=== PATIENT | female | born 1960 | race African-American/Black ===

== ENCOUNTER → 2017-12-08 | Outpatient (CLI) | payer BC ==
--- NOTE | 2017-12-08 19:59 | XR ---
EXAMINATION TYPE: XR foot complete RT DATE OF EXAM: 12/08/2017 COMPARISON: 11/22/2011 HISTORY: 57 year-old female right foot pain TECHNIQUE: 3 views FINDINGS: Mild to moderate degenerative spurring at the first MTP joint. Mild bunion formation. A Velásquez's toe is present. Tiny plantar calcaneal spur. No acute fracture, subluxation, or dislocation seen. IMPRESSION: [id number] degenerative change at the first MTP joint. Mild bunion formation and a Velásquez's toe . Tiny plantar calcaneal spur.
== END | disposition home or self-care (01) ==
LOC: RADXRMAIN 15:49
PROVIDERS: ATTEND Physician Assistant
DX: M77.31 Calcaneal spur, right foot (principal); M21.611 Bunion of right foot

== ENCOUNTER 2020-07-27 21:53 | Emergency (ER) | payer BC, OTHER ==
--- NOTE | 2020-07-27 22:47 | ED ---
Female Urogenital HPI - General Chief complaint: Urogenital Stated complaint: Poss GI infection Time Seen by Provider: 07/27/20 22:26 Source: patient Mode of arrival: ambulatory Limitations: no limitations - History of Present Illness Initial comments: This patient is 60-year-old woman who presents with complaint of perineal rash. The patient states that she thought that she was having vulvar yeast infection starting about 3 weeks ago. She noticed initially some burning. She states that she then noted onset of a rash and she tried using [id number] medication for yeast infection. This was approximately 10 days ago. The patient states that since that time she has noted further burning discomfort and swelling and is wondering if she had an ALLERGIC reaction to the medication or to laundry detergent. No fever or chills. No abdominal pain. No change in urination. The patient states she has possibly been a little constipated for 2 days. Review of systems is otherwise notable for itching rash to the fingers of the hands greater on the left side. MD Complaint: other Onset/Timin -: week(s) Location: labia, perineum Severity: mild Quality: burning Consistency: constant Improves with: none Worsens with: none Associated Symptoms: rash - Related Data Home Medications Medication Instructions Recorded Confirmed Irbesartan [Avapro] 300 mg PO DAILY 02/17/16 02/17/16 Metoprolol Succinate (ER) [Toprol 1 tab PO DAILY 02/17/16 02/17/16 XL] Previous Rx's Medication Instructions Recorded ALPRAZolam [Xanax] 0.25 mg PO BID PRN #10 tab 02/18/16 Fluconazole [Diflucan] 150 mg PO ONCE #2 tab 07/27/20 Allergies Allergy/AdvReac Type Severity Reaction Status Date / Time adhesive Allergy Rash/Hives Verified 07/27/20 22:10 sulfamethoxazole Allergy Rash/Hives Verified 07/27/20 22:10 [From Bactrim] trimethoprim [From Bactrim] Allergy Rash/Hives Verified 07/27/20 22:10 lisinopril AdvReac Cough Verified 07/27/20 22:10 Review of Systems ROS Statement: Those systems with pertinent positive or pertinent negative responses have been documented in the HPI. ROS Other: All systems not noted in ROS Statement are negative. Past Medical History Past Medical History: Chest Pain / Angina, GERD/Reflux, Hypertension History of Any Multi-Drug Resistant Organisms: None Reported Past Surgical History: Appendectomy, Hysterectomy Additional Past Surgical History / Comment(s): removal of cyst on right ovary, Past Anesthesia/Blood Transfusion Reactions: No Reported Reaction Past Psychological History: No Psychological Hx Reported Smoking Status: Current every day smoker Past Alcohol Use History: Daily Past Drug Use History: None Reported General Exam Limitations: no limitations General appearance: alert, in no apparent distress Head exam: Present: atraumatic, normocephalic Eye exam: Present: normal appearance. Absent: scleral icterus, conjunctival injection ENT exam: Present: normal oropharynx Neck exam: Present: normal inspection Respiratory exam: Present: normal lung sounds bilaterally. Absent: respiratory distress, wheezes, rales, rhonchi, stridor Cardiovascular Exam: Present: regular rate, normal rhythm, normal heart sounds. Absent: systolic murmur, diastolic murmur, rubs, gallop GI/Abdominal exam: Present: soft. Absent: distended, tenderness, guarding, rebound, rigid External exam: Present: erythema, swelling (Mild diffuse vulvar swelling and erythema. Small amount of thick whitish discharge.) Extremities exam: Present: normal inspection, normal capillary refill. Absent: pedal edema, calf tenderness Neurological exam: Present: alert Skin exam: Present: warm, dry, intact, erythema Course Vital Signs 07/27/20 07/27/20 22:04 23:57 Temperature 98.3 F 98.5 F Pulse Rate 103 H 80 Respiratory 18 16 Rate Blood Pressure 165/98 141/95 O2 Sat by Pulse 100 100 Oximetry Medical Decision Making - Lab Data Lab Results 07/27/20 07/27/20 Range/Units 22:53 23:16 POC Glucose (mg/dL) 116 H (75-99) mg/dL POC Glu Medicine Tech ID Tena Gómez Urine Color Yellow Urine Appearance Cloudy H (Clear) Urine pH 5.0 (5.0-8.0) Ur Specific [place] 1.012 (1.001-1.035) Urine Protein Negative (Negative) Urine Glucose (UA) Negative (Negative) Urine Ketones Negative (Negative) Urine Blood Negative (Negative) Urine Nitrite Negative (Negative) Urine Bilirubin Negative (Negative) Urine Urobilinogen 2.0 (<2.0) mg/dL Ur Leukocyte Esterase Negative (Negative) Urine RBC 4 (0-5) /hpf Urine WBC 2 (0-5) /hpf Ur Squamous Epith Cells 5 H (0-4) /hpf Calcium Oxalate Crystal Occasional H (None) /hpf Hyaline Casts 152 H (0-2) /lpf Urine Mucus Rare H (None) /hpf Disposition Clinical Impression: Sarah infection of genital region, Dyshidrotic hand dermatitis Disposition: HOME SELF-CARE Condition: Good Instructions (If sedation given, give patient instructions): Yeast Infection (ED), Dyshidrotic Eczema (ED) Additional Instructions: First line treatment for dyshidrosis would be to try using zinc oxide cream on the affected areas twice per day Prescriptions: Fluconazole [Diflucan] 150 mg PO ONCE #2 tab Is patient prescribed a controlled substance at d/c from ED?: No Referrals: Teddy Gore DO [Primary Care Provider] - 1-2 days Monico Senior MD [STAFF PHYSICIAN] - 1-2 days
[2020-07-27 22:56] LABS: Glucose,Whole Blood 116 mg/dL (75-99)
[2020-07-27] MEDS: FLUCONAZOLE 150 MG TAB PO STA (23:01)
[2020-07-27 23:34] LABS: Appearance,Urine Cloudy (Clear); Bilirubin,Urine Negative (Negative); Blood,Urine Negative (Negative); Calcium Oxalate Crystals,Urine Occasional /hpf; Color,Urine Yellow; Glucose,Urine (UA) Negative (Negative); Hyaline Casts,Urine 152 /lpf (0-2); Ketones,Urine Negative (Negative); Leukocyte Esterase,Urine Negative (Negative); Mucus,Urine Rare /hpf; Nitrite,Urine Negative (Negative); Protein,Urine Negative (Negative); RBC,Urine 4 /hpf (0-5); Specific Gravity,Urine 1.012 (1.001-1.035); Squamous Epithelial Cell,Urine 5 /hpf (0-4); WBC,Urine 2 /hpf (0-5)
[2020-07-27] MEDS: predniSONE 20 MG TAB PO STA (23:47)
[2020-07-27 23:59] VITALS: BP 141/95; PULSE 80; RESP 16; TEMP 98.5
== END 2020-07-27 23:58 | disposition home or self-care (01) ==
LOC: EC 21:53
DX: B37.9 Candidiasis, unspecified (principal); L30.1 Dyshidrosis [pompholyx]; F17.200 Nicotine dependence, unspecified, uncomplicated; I10 Essential (primary) hypertension; Z79.899 Other long term (current) drug therapy; Z91.048 Other nonmedicinal substance allergy status; Z88.2 Allergy status to sulfonamides; Z88.8 Allergy status to other drugs, medicaments and biological substances; Z88.1 Allergy status to other antibiotic agents
CPT/HCPCS: 36415; 81001; 99283; J7512

== ENCOUNTER 2020-10-13 20:19 | Emergency (ER) | payer BC, OTHER ==
[2020-10-13 20:28] LABS: Glucose,Whole Blood 128 mg/dL (75-99)
[2020-10-13 21:27] LABS: Basophils % (A) 1 %; Eosinophils # (A) 0.2 k/uL (0-0.7); Eosinophils % (A) 5 %; Lymphocytes # (A) 0.9 k/uL (1.0-4.8); Lymphocytes % (A) 24 %; MCH 33.5 pg (25.0-35.0); MCHC 34.2 g/dL (31.0-37.0); Mean Platelet Volume 7.5; Monocytes # (A) 0.2 k/uL (0-1.0); Monocytes % (A) 5 %; Neutrophils # (A) 2.3 k/uL (1.3-7.7); Neutrophils % (A) 63 %; Platelet Count 155 k/uL (150-450); RBC 4.18 m/uL (3.80-5.40); WBC 3.6 k/uL (3.8-10.6)
[2020-10-13 21:44] LABS: INR 1.2 (<1.2); Partial Thromboplastin Time 23.9 sec (22.0-30.0); Prothrombin Time 12.2 sec (9.0-12.0)
--- NOTE | 2020-10-13 21:53 | XR ---
EXAMINATION TYPE: XR chest 1V portable DATE OF EXAM: 10/13/2020 COMPARISON: 12/04/2015 HISTORY: Pneumonia TECHNIQUE: Single view FINDINGS: Heart and mediastinum are normal. Lungs are clear. Diaphragm is normal. Bony thorax appears normal. There are chest leads. IMPRESSION: Normal chest. No change.
[2020-10-13 22:03] LABS: D-Dimer 1.49 mg/L FEU (<0.60)
[2020-10-13 22:30] LABS: ALT 44 U/L (4-34); AST 115 U/L (14-36); African American GFR (CKD) 67 (>60 ml/min/1.73 sqM); Albumin 3.8 g/dL (3.5-5.0); Alkaline Phosphatase 138 U/L (38-126); Anion Gap 10 mmol/L; Blood Urea Nitrogen 9 mg/dL (7-17); C Reactive Protein <5.0 mg/L (<10.0); Carbon Dioxide 26 mmol/L (22-30); Chloride 98 mmol/L (98-107); Glucose 114 mg/dL (74-99); LDH 710 U/L (313-618); Magnesium 1.2 mg/dL (1.6-2.3); Non-African American GFR(CKD) 58 (>60 ml/min/1.73 sqM); Potassium 3.9 mmol/L (3.5-5.1); Sodium 134 mmol/L (137-145); Total Protein 7.8 g/dL (6.3-8.2)
[2020-10-13 22:36] VITALS: RESP 16; TEMP 98.8
[2020-10-13] MEDS ORDERED: hydrALAZINE HCL 20 MG/ML 1 ML VIAL IVP STA (23:03)
--- NOTE | 2020-10-13 23:09 | CT ---
EXAMINATION TYPE: CT chest angio for PE DATE OF EXAM: 10/13/2020 COMPARISON: None HISTORY: Elevated d-dimer, +covid. CT DLP: 345.4 mGycm Automated exposure control for dose reduction was used. CONTRAST: Performed with IV Contrast, patient injected with 80ml mL of Isovue 370. There are 3-D post processed images. Images obtained from the thoracic inlet to the diaphragm with IV contrast. The lungs are clear of infiltrate. There is no evidence of a pulmonary mass. There is no pleural effu vivi. There is no pericardial effusion. Heart size is normal. There is low attenuation throughout the liver consistent with fatty infiltration. Heart size is normal. There is no mediastinal adenopathy. There are no hilar masses. There is normal contrast opacification of the pulmonary arteries. There are no filling defects. Thora cic aorta is intact. There is no aneurysm or dissection. The ascending aorta measures 3.5 cm. There is mild spurring in the thoracic spine. There is no compression fracture. Sternum is intact. Th e ribs appear intact. IMPRESSION: No evidence of pulmonary embolism. No evidence of acute lung disease. Fatty infiltration of the liver.
--- NOTE | 2020-10-13 23:29 | ED ---
Weakness HPI - General Chief complaint: Weakness Stated complaint: Unable to eat Time Seen by Provider: 10/13/20 20:35 Source: patient Mode of arrival: ambulatory - History of Present Illness Initial comments: 60-year-old female hypertension presenting to the ER today for chief complaint of generalized weakness cough bodyaches nausea change in taste in appetite. Patient states that she has been battling with this on and off since August. She states it got better for few weeks and now is back she is concerned she has had Covid. She denies any persistent vomiting, diarrhea or rashes. Patient denies any neck stiffness. Patient denies any abdominal pain chest pain. Pat ient states she has slight shortness of breath she denies small cystlike swelling calf pain. She denies any upper extremity swelling. Patient denies orthopnea> pt states the dyspnea does worsening with exertion> pt states she did have friends that she has interacted wtih in the last month test positive for covid 19. Patient denies additional complaints. Patient appears nontoxic in no distress on arrival. BP elevated but patient did not take her medications today. - Related Data Home Medications Medication Instructions Recorded Confirmed Irbesartan [Avapro] 300 mg PO DAILY 02/17/16 02/17/16 Metoprolol Succinate (ER) [Toprol 1 tab PO DAILY 02/17/16 02/17/16 XL] Previous Rx's Medication Instructions Recorded ALPRAZolam [Xanax] 0.25 mg PO BID PRN #10 tab 02/18/16 Fluconazole [Diflucan] 150 mg PO ONCE #2 tab 07/27/20 Magnesium Oxide [Mag-Ox] 400 mg PO DAILY 2 Days #2 tablet 10/14/20 Allergies Allergy/AdvReac Type Severity Reaction Status Date / Time adhesive Allergy Rash/Hives Verified 10/13/20 20:28 sulfamethoxazole Allergy Rash/Hives Verified 10/13/20 20:28 [From Bactrim] trimethoprim [From Bactrim] Allergy Rash/Hives Verified 10/13/20 20:28 lisinopril AdvReac Cough Verified 10/13/20 20:28 Review of Systems ROS Statement: Those systems with pertinent positive or pertinent negative responses have been documented in the HPI. ROS Other: All systems not noted in ROS Statement are negative. Past Medical History Past Medical History: Chest Pain / Angina, GERD/Reflux, Hypertension History of Any Multi-Drug Resistant Organisms: None Reported Past Surgical History: Appendectomy, Hysterectomy Additional Past Surgical History / Comment(s): removal of cyst on right ovary, Past Anesthesia/Blood Transfusion Reactions: No Reported Reaction Past Psychological History: No Psychological Hx Reported Smoking Status: Current every day smoker Past Alcohol Use History: Daily Past Drug Use History: None Reported General Exam - General Exam Comments Initial Comments: General: The patient is awake and alert, in no distress Eye: +3 mm pupils are equal, round and reactive to light, extra-ocular movements are intact. No nystagmus. There is normal conjunctiva bilaterally. No signs of icterus. Ears, nose, mouth and throat: There are moist mucous membranes and no oral lesions. Neck: The neck is supple, there is no tenderness or JVD. Cardiovascular: There is a regular rate and rhythm. No murmur, rub or gallop is appreciated. Respiratory: Lungs are clear to auscultation, respirations are non-labored, breath sounds are equal. No wheezes, stridor, rales, or rhonchi. Cough. Retractions no abdominal breathing Gastrointestinal: Soft, non-distended, non-tender abdomen without masses or organomegaly noted. There is no rebound or guarding present. No CVA tenderness. Musculoskeletal: Normal ROM, no tenderness. Strength 5/5. Sensation intact. Radial and DP pulses equal bilaterally 2+. Neurological: A&O x 3. CN II-XII intact grossly, There are no obvious motor or sensory deficits. Coordination appears grossly intact. Speech is normal. Skin: Skin is warm and dry and no rashes or lesions are noted. No calf pain, no LE edema. Psychiatric: Cooperative, appropriate mood & affect, normal judgment. Course Vital Signs 10/13/20 10/13/20 10/13/20 20:21 20:46 22:35 Temperature 97.9 F 98.8 F Pulse Rate 86 76 Respiratory 19 18 16 Rate Blood Pressure 138/103 137/104 O2 Sat by Pulse 98 98 Oximetry 10/13/20 10/14/20 23:00 00:25 Temperature Pulse Rate 72 82 Respiratory 16 16 Rate Blood Pressure 150/99 140/89 O2 Sat by Pulse 100 Oximetry Medical Decision Making - Medical Decision Making Very well-appearing 60-year-old female presenting today for multiple complaints. They're concerning for Covid 19. Pt covid +. CXR clear. Troponin (-). EKG no specific findings. No CP. Patient dimer elevated CTA (-) for PE. Patient has no extremity findings. Patient hydrated. and will be discharged with symptomatic treatment instruction, return parameters and monitoring precautions. Discussed purchasing a pulse oximete, he son Eric who is bedside states he has one available for her use. Patient discharged appearing well in no distress, self ambulatory. Dr. Osborn agreeable to care plan. - Lab Data Result diagrams: 10/13/20 21:10 10/13/20 21:10 Lab Results 10/13/20 10/13/20 10/13/20 Range/Units 20:26 21:10 21:10 WBC 3.6 L (3.8-10.6) k/uL RBC 4.18 (3.80-5.40) m/uL Hgb 14.0 (11.4-16.0) gm/dL Hct 41.0 (34.0-46.0) % MCV 98.0 (80.0-100.0) fL MCH 33.5 (25.0-35.0) pg MCHC 34.2 (31.0-37.0) g/dL RDW 13.0 (11.5-15.5) % Plt Count 155 (150-450) k/uL MPV 7.5 Neutrophils % 63 % Lymphocytes % 24 % Monocytes % 5 % Eosinophils % 5 % Basophils % 1 % Neutrophils # 2.3 (1.3-7.7) k/uL Lymphocytes # 0.9 L (1.0-4.8) k/uL Monocytes # 0.2 (0-1.0) k/uL Eosinophils # 0.2 (0-0.7) k/uL Basophils # 0.0 (0-0.2) k/uL PT 12.2 H (9.0-12.0) sec INR 1.2 H (<1.2) APTT 23.9 (22.0-30.0) sec D-Dimer 1.49 H (<0.60) mg/L FEU Sodium (137-145) mmol/L Potassium (3.5-5.1) mmol/L Chloride (98-107) mmol/L Carbon Dioxide (22-30) mmol/L Anion Gap mmol/L BUN (7-17) mg/dL Creatinine (0.52-1.04) mg/dL Est GFR (CKD-EPI)AfAm (>60 ml/min/1.73 sqM) Est GFR (CKD-EPI)NonAf (>60 ml/min/1.73 sqM) Glucose (74-99) mg/dL POC Glucose (mg/dL) 128 H (75-99) mg/dL POC Glu Key Filer ID Byron Cartagena Lactic Ac Sepsis Rflx Plasma Lactic Acid [place] (0.7-2.0) mmol/L Calcium (8.4-10.2) mg/dL Magnesium (1.6-2.3) mg/dL Total Bilirubin (0.2-1.3) mg/dL AST (14-36) U/L ALT (4-34) U/L Alkaline Phosphatase (38-126) U/L Lactate Dehydrogenase (313-618) U/L Troponin I (0.000-0.034) ng/mL C-Reactive Protein (<10.0) mg/L Total Protein (6.3-8.2) g/dL Albumin (3.5-5.0) g/dL Coronavirus (PCR) (Not Detectd) 10/13/20 10/13/20 10/13/20 Range/Units 21:10 21:10 21:10 WBC (3.8-10.6) k/uL RBC (3.80-5.40) m/uL Hgb (11.4-16.0) gm/dL Hct (34.0-46.0) % MCV (80.0-100.0) fL MCH (25.0-35.0) pg MCHC (31.0-37.0) g/dL RDW (11.5-15.5) % Plt Count (150-450) k/uL MPV Neutrophils % % Lymphocytes % % Monocytes % % Eosinophils % % Basophils % % Neutrophils # (1.3-7.7) k/uL Lymphocytes # (1.0-4.8) k/uL Monocytes # (0-1.0) k/uL Eosinophils # (0-0.7) k/uL Basophils # (0-0.2) k/uL PT (9.0-12.0) sec INR (<1.2) APTT (22.0-30.0) sec D-Dimer (<0.60) mg/L FEU Sodium 134 L (137-145) mmol/L Potassium 3.9 (3.5-5.1) mmol/L Chloride 98 (98-107) mmol/L Carbon Dioxide 26 (22-30) mmol/L Anion Gap 10 mmol/L BUN 9 (7-17) mg/dL Creatinine 1.04 (0.52-1.04) mg/dL Est GFR (CKD-EPI)AfAm 67 (>60 ml/min/1.73 sqM) Est GFR (CKD-EPI)NonAf 58 (>60 ml/min/1.73 sqM) Glucose 114 H (74-99) mg/dL POC Glucose (mg/dL) (75-99) mg/dL POC Glu Key Filer ID Lactic Ac Sepsis Rflx Plasma Lactic Acid [place] 2.1 H* (0.7-2.0) mmol/L Calcium 9.0 (8.4-10.2) mg/dL Magnesium 1.2 L (1.6-2.3) mg/dL Total Bilirubin 1.0 (0.2-1.3) mg/dL AST 115 H (14-36) U/L ALT 44 H (4-34) U/L Alkaline Phosphatase 138 H (38-126) U/L Lactate Dehydrogenase 710 H (313-618) U/L Troponin I <0.012 (0.000-0.034) ng/mL C-Reactive Protein <5.0 (<10.0) mg/L Total Protein 7.8 (6.3-8.2) g/dL Albumin 3.8 (3.5-5.0) g/dL Coronavirus (PCR) (Not Detectd) 10/13/20 10/13/20 Range/Units 21:10 22:06 WBC (3.8-10.6) k/uL RBC (3.80-5.40) m/uL Hgb (11.4-16.0) gm/dL Hct (34.0-46.0) % MCV (80.0-100.0) fL MCH (25.0-35.0) pg MCHC (31.0-37.0) g/dL RDW (11.5-15.5) % Plt Count (150-450) k/uL MPV Neutrophils % % Lymphocytes % % Monocytes % % Eosinophils % % Basophils % % Neutrophils # (1.3-7.7) k/uL Lymphocytes # (1.0-4.8) k/uL Monocytes # (0-1.0) k/uL Eosinophils # (0-0.7) k/uL Basophils # (0-0.2) k/uL PT (9.0-12.0) sec INR (<1.2) APTT (22.0-30.0) sec D-Dimer (<0.60) mg/L FEU Sodium (137-145) mmol/L Potassium (3.5-5.1) mmol/L Chloride (98-107) mmol/L Carbon Dioxide (22-30) mmol/L Anion Gap mmol/L BUN (7-17) mg/dL Creatinine (0.52-1.04) mg/dL Est GFR (CKD-EPI)AfAm (>60 ml/min/1.73 sqM) Est GFR (CKD-EPI)NonAf (>60 ml/min/1.73 sqM) Glucose (74-99) mg/dL POC Glucose (mg/dL) (75-99) mg/dL POC Glu Key Filer ID Lactic Ac Sepsis Rflx Y Plasma Lactic Acid [place] (0.7-2.0) mmol/L Calcium (8.4-10.2) mg/dL Magnesium (1.6-2.3) mg/dL Total Bilirubin (0.2-1.3) mg/dL AST (14-36) U/L ALT (4-34) U/L Alkaline Phosphatase (38-126) U/L Lactate Dehydrogenase (313-618) U/L Troponin I (0.000-0.034) ng/mL C-Reactive Protein (<10.0) mg/L Total Protein (6.3-8.2) g/dL Albumin (3.5-5.0) g/dL Coronavirus (PCR) Detected A (Not Detectd) Disposition Clinical Impression: Lack of appetite, Weakness, Cough, Altered taste, Dyspnea, Hypomagnesemia Disposition: HOME SELF-CARE Condition: Good Instructions (If sedation given, give patient instructions): Coronavirus Disease 2019 (COVID-19) Additional Instructions: Please use medication as discussed. Please follow-up with family doctor in the next 2 days. Recommend home monitoring of oxygen levels, if oxygen drops below 92% or shortness of breath increased please return to the ER. Please return to emergency room if the symptoms increase or worsen or for any other concerns. Is patient prescribed a controlled substance at d/c from ED?: No Referrals: Teddy Gore DO [Primary Care Provider] - 1-2 days Time of Disposition: 23:28
[2020-10-13] MEDS ORDERED: SODIUM CHLORIDE 0.9% 500 ML 500 ML IV ONE (23:36)
[2020-10-13] MEDS ORDERED: SODIUM CHLORIDE 0.9% 1,000 ML IV SCH (23:45)
[2020-10-14 00:26] VITALS: BP 140/89; PULSE 82
[2020-10-14 09:54] LABS: Ferritin 949.6 ng/mL (10.0-291.0)
== END 2020-10-14 00:26 | disposition home or self-care (01) ==
LOC: EC 20:19
DX: E83.42 Hypomagnesemia (principal); K21.9 Gastro-esophageal reflux disease without esophagitis; I10 Essential (primary) hypertension; F17.200 Nicotine dependence, unspecified, uncomplicated; Z90.49 Acquired absence of other specified parts of digestive tract; Z90.710 Acquired absence of both cervix and uterus; Z90.721 Acquired absence of ovaries, unilateral; Z79.899 Other long term (current) drug therapy
CPT/HCPCS: 99285; 96374; 36415; 93005; 85379; 80053; 82728; 83605; 83615; 83735; 84484; 85025; 85610; 85730; 86140; 87040; 84145; 87635; 71045; 71275; J0360; Q9967

== ENCOUNTER 2021-08-11 03:48 | Emergency (ER) | payer OTHER ==
[2021-08-11] MEDS ORDERED: ONDANSETRON ODT 4 MG TAB PO STA (03:59)
[2021-08-11] MEDS ORDERED: SODIUM CHLORIDE 0.9% 1,000 ML IV STA (05:59)
[2021-08-11] MEDS ORDERED: ONDANSETRON 4 MG/2 ML VIAL IVP STA (05:59)
[2021-08-11 07:58] LABS: Basophils % (A) 0 %; Eosinophils # (A) 0.1 k/uL (0-0.7); Eosinophils % (A) 2 %; HCT 26.2 % (34.0-46.0); HGB 8.6 gm/dL (11.4-16.0); Lymphocytes # (A) 0.5 k/uL (1.0-4.8); Lymphocytes % (A) 18 %; MCH 34.6 pg (25.0-35.0); MCHC 32.8 g/dL (31.0-37.0); MCV 105.6 fL (80.0-100.0); Macrocytosis Moderate; Mean Platelet Volume 7.8; Monocytes # (A) 0.2 k/uL (0-1.0); Monocytes % (A) 6 %; Neutrophils # (A) 2.1 k/uL (1.3-7.7); Neutrophils % (A) 71 %; Platelet Count 119 k/uL (150-450); RBC 2.48 m/uL (3.80-5.40); RDW 14.4 % (11.5-15.5)
[2021-08-11 08:09] LABS: ALT 32 U/L (4-34); AST 142 U/L (14-36); African American GFR (CKD) >90 (>60 ml/min/1.73 sqM); Albumin 3.1 g/dL (3.5-5.0); Alkaline Phosphatase 102 U/L (38-126); Amylase 56 U/L (30-110); Anion Gap 9 mmol/L; Blood Urea Nitrogen 5 mg/dL (7-17); Calcium 7.5 mg/dL (8.4-10.2); Carbon Dioxide 20 mmol/L (22-30); Chloride 111 mmol/L (98-107); Glucose 97 mg/dL (74-99); Lipase 189 U/L (23-300); Non-African American GFR(CKD) 84 (>60 ml/min/1.73 sqM); Sodium 140 mmol/L (137-145); Total Bilirubin 0.9 mg/dL (0.2-1.3); Total Protein 6.4 g/dL (6.3-8.2)
[2021-08-11 09:32] LABS: Appearance,Urine Clear (Clear); Bilirubin,Urine Negative (Negative); Blood,Urine Negative (Negative); Color,Urine Yellow; Glucose,Urine (UA) Negative (Negative); Ketones,Urine Negative (Negative); Leukocyte Esterase,Urine Negative (Negative); Nitrite,Urine Negative (Negative); PH, Urine 6.5 (5.0-8.0); Protein,Urine Negative (Negative); Specific Gravity,Urine 1.007 (1.001-1.035); Urobilinogen,Urine <2.0 mg/dL (<2.0)
--- NOTE | 2021-08-11 09:38 | ED ---
Nausea/Vomiting/Diarrhea HPI - General Chief complaint: Nausea/Vomiting/Diarrhea Stated complaint: Vomiting Time Seen by Provider: 08/11/21 03:58 Source: patient Mode of arrival: ambulatory Limitations: no limitations - Related Data Home Medications Medication Instructions Recorded Confirmed Irbesartan [Avapro] 300 mg PO DAILY 02/17/16 02/17/16 Metoprolol Succinate (ER) [Toprol 1 tab PO DAILY 02/17/16 02/17/16 XL] Previous Rx's Medication Instructions Recorded ALPRAZolam [Xanax] 0.25 mg PO BID PRN #10 tab 02/18/16 Fluconazole [Diflucan] 150 mg PO ONCE #2 tab 07/27/20 Magnesium Oxide [Mag-Ox] 400 mg PO DAILY 2 Days #2 tablet 10/14/20 Ondansetron Odt [Zofran ODT] 4 mg PO Q8HR PRN #10 tab 08/11/21 Allergies Allergy/AdvReac Type Severity Reaction Status Date / Time adhesive Allergy Rash/Hives Verified 08/11/21 03:54 sulfamethoxazole Allergy Rash/Hives Verified 08/11/21 03:54 [From Bactrim] trimethoprim [From Bactrim] Allergy Rash/Hives Verified 08/11/21 03:54 lisinopril AdvReac Cough Verified 08/11/21 03:54 Review of Systems ROS Statement: Those systems with pertinent positive or pertinent negative responses have been documented in the HPI. ROS Other: All systems not noted in ROS Statement are negative. Past Medical History Past Medical History: Chest Pain / Angina, GERD/Reflux, Hypertension, Thyroid Disorder History of Any Multi-Drug Resistant Organisms: None Reported Past Surgical History: Appendectomy, Hysterectomy Additional Past Surgical History / Comment(s): removal of cyst on right ovary, Past Anesthesia/Blood Transfusion Reactions: No Reported Reaction Past Psychological History: No Psychological Hx Reported Smoking Status: Current every day smoker Past Alcohol Use History: Daily Past Drug Use History: None Reported General Exam Limitations: no limitations Course Vital Signs 08/11/21 03:49 Temperature 98.3 F Pulse Rate 110 H Respiratory 22 Rate Blood Pressure 168/104 O2 Sat by Pulse 100 Oximetry Medical Decision Making - Lab Data Result diagrams: 08/11/21 07:48 08/11/21 07:48 Lab Results 01/16/22 01/16/22 01/16/22 Range/Units 04:19 07:48 07:48 WBC 3.0 L (3.8-10.6) k/uL RBC 2.48 L (3.80-5.40) m/uL Hgb 8.6 L (11.4-16.0) gm/dL Hct 26.2 L (34.0-46.0) % MCV 105.6 H (80.0-100.0) fL MCH 34.6 (25.0-35.0) pg MCHC 32.8 (31.0-37.0) g/dL RDW 14.4 (11.5-15.5) % Plt Count 119 L (150-450) k/uL MPV 7.8 Neutrophils % 71 % Lymphocytes % 18 % Monocytes % 6 % Eosinophils % 2 % Basophils % 0 % Neutrophils # 2.1 (1.3-7.7) k/uL Lymphocytes # 0.5 L (1.0-4.8) k/uL Monocytes # 0.2 (0-1.0) k/uL Eosinophils # 0.1 (0-0.7) k/uL Basophils # 0.0 (0-0.2) k/uL Macrocytosis Moderate Sodium 140 (137-145) mmol/L Potassium 4.0 (3.5-5.1) mmol/L Chloride 111 H (98-107) mmol/L Carbon Dioxide 20 L (22-30) mmol/L Anion Gap 9 mmol/L BUN 5 L (7-17) mg/dL Creatinine 0.76 (0.52-1.04) mg/dL Est GFR (CKD-EPI)AfAm >90 (>60 ml/min/1.73 sqM) Est GFR (CKD-EPI)NonAf 84 (>60 ml/min/1.73 sqM) Glucose 97 (74-99) mg/dL Calcium 7.5 L (8.4-10.2) mg/dL Total Bilirubin 0.9 (0.2-1.3) mg/dL AST 142 H (14-36) U/L ALT 32 (4-34) U/L Alkaline Phosphatase 102 (38-126) U/L Total Protein 6.4 (6.3-8.2) g/dL Albumin 3.1 L (3.5-5.0) g/dL Amylase 56 (30-110) U/L Lipase 189 (23-300) U/L Urine Color Urine Appearance (Clear) Urine pH (5.0-8.0) Ur Specific [place] (1.001-1.035) Urine Protein (Negative) Urine Glucose (UA) (Negative) Urine Ketones (Negative) Urine Blood (Negative) Urine Nitrite (Negative) Urine Bilirubin (Negative) Urine Urobilinogen (<2.0) mg/dL Ur Leukocyte Esterase (Negative) Coronavirus (PCR) Not Detected (Not Detectd) 08/11/21 Range/Units 09:05 WBC (3.8-10.6) k/uL RBC (3.80-5.40) m/uL Hgb (11.4-16.0) gm/dL Hct (34.0-46.0) % MCV (80.0-100.0) fL MCH (25.0-35.0) pg MCHC (31.0-37.0) g/dL RDW (11.5-15.5) % Plt Count (150-450) k/uL MPV Neutrophils % % Lymphocytes % % Monocytes % % Eosinophils % % Basophils % % Neutrophils # (1.3-7.7) k/uL Lymphocytes # (1.0-4.8) k/uL Monocytes # (0-1.0) k/uL Eosinophils # (0-0.7) k/uL Basophils # (0-0.2) k/uL Macrocytosis Sodium (137-145) mmol/L Potassium (3.5-5.1) mmol/L Chloride (98-107) mmol/L Carbon Dioxide (22-30) mmol/L Anion Gap mmol/L BUN (7-17) mg/dL Creatinine (0.52-1.04) mg/dL Est GFR (CKD-EPI)AfAm (>60 ml/min/1.73 sqM) Est GFR (CKD-EPI)NonAf (>60 ml/min/1.73 sqM) Glucose (74-99) mg/dL Calcium (8.4-10.2) mg/dL Total Bilirubin (0.2-1.3) mg/dL AST (14-36) U/L ALT (4-34) U/L Alkaline Phosphatase (38-126) U/L Total Protein (6.3-8.2) g/dL Albumin (3.5-5.0) g/dL Amylase (30-110) U/L Lipase (23-300) U/L Urine Color Yellow Urine Appearance Clear (Clear) Urine pH 6.5 (5.0-8.0) Ur Specific [place] 1.007 (1.001-1.035) Urine Protein Negative (Negative) Urine Glucose (UA) Negative (Negative) Urine Ketones Negative (Negative) Urine Blood Negative (Negative) Urine Nitrite Negative (Negative) Urine Bilirubin Negative (Negative) Urine Urobilinogen <2.0 (<2.0) mg/dL Ur Leukocyte Esterase Negative (Negative) Coronavirus (PCR) (Not Detectd) Disposition Clinical Impression: Vomiting Disposition: HOME SELF-CARE Condition: Good Instructions (If sedation given, give patient instructions): Acute Nausea and Vomiting (ED) Prescriptions: Ondansetron Odt [Zofran ODT] 4 mg PO Q8HR PRN #10 tab PRN Reason: Nausea Is patient prescribed a controlled substance at d/c from ED?: No Referrals: eTddy Gore DO [Primary Care Provider] - 1-2 days
[2021-08-11 09:58] VITALS: BP 144/99; PULSE 98; RESP 18; TEMP 98.8
== END 2021-08-11 09:57 | disposition home or self-care (01) ==
LOC: EC 03:48
DX: R11.10 Vomiting, unspecified (principal); I10 Essential (primary) hypertension; K21.9 Gastro-esophageal reflux disease without esophagitis; F17.200 Nicotine dependence, unspecified, uncomplicated; Z79.899 Other long term (current) drug therapy; Z20.822 Contact with and (suspected) exposure to COVID-19
CPT/HCPCS: 36415; 80053; 82150; 83690; 85025; 81003; 87635; 99283; 96374; 96361; J2405

== ENCOUNTER 2023-07-11 20:33 | Observation (INO) | payer MEDICARE ==
[2023-07-11] MEDS ORDERED: SODIUM CHLORIDE 0.9% 1,000 ML IV ONE (21:04)
[2023-07-11] MEDS ORDERED: KETOROLAC 15 MG/ML 1 ML VIAL IVP STA (21:05)
[2023-07-11] MEDS ORDERED: MAG HYDROX/AL HYDROX/SIMETH 30 ML, HYOSCYAMINE ELIXIR 10 ML, LIDOCAINE 2% GLYDO JELLY 1... PO STA ×3 (21:05)
[2023-07-11] MEDS ORDERED: MORPHINE SULFATE 4 MG/ML SYRINGE IVP STA (21:34)
[2023-07-11 21:39] LABS: Basophils % (A) 1 %; Eosinophils # (A) 0.1 k/uL (0-0.7); Eosinophils % (A) 3 %; HCT 36.1 % (34.0-46.0); HGB 12.6 gm/dL (11.4-16.0); Lymphocytes # (A) 0.6 k/uL (1.0-4.8); Lymphocytes % (A) 23 %; MCH 34.3 pg (25.0-35.0); MCV 98.1 fL (80.0-100.0); Macrocytosis Slight; Mean Platelet Volume 7.3; Monocytes # (A) 0.1 k/uL (0-1.0); Monocytes % (A) 5 %; Neutrophils # (A) 1.6 k/uL (1.3-7.7); Neutrophils % (A) 67 %; Platelet Count 306 k/uL (150-450); RBC 3.69 m/uL (3.80-5.40); RDW 15.8 % (11.5-15.5); WBC 2.4 k/uL (3.8-10.6)
[2023-07-11 21:48] LABS: ALT 30 U/L (4-34); AST 50 U/L (14-36); African American GFR (CKD) 55 (>60 ml/min/1.73 sqM); Albumin 4.9 g/dL (3.5-5.0); Alkaline Phosphatase 98 U/L (38-126); Amylase 76 U/L (30-110); Anion Gap 17 mmol/L; Blood Urea Nitrogen 13 mg/dL (7-17); Calcium 9.6 mg/dL (8.4-10.2); Carbon Dioxide 22 mmol/L (22-30); Chloride 96 mmol/L (98-107); Glucose 115 mg/dL (74-99); Lipase 93 U/L (23-300); Non-African American GFR(CKD) 48 (>60 ml/min/1.73 sqM); Potassium 4.1 mmol/L (3.5-5.1); Sodium 135 mmol/L (137-145); Total Bilirubin 1.5 mg/dL (0.2-1.3); Total Protein 8.9 g/dL (6.3-8.2)
[2023-07-11 23:52] LABS: Appearance,Urine Clear (Clear); Bilirubin,Urine Negative (Negative); Blood,Urine Negative (Negative); Color,Urine Colorless; Glucose,Urine (UA) Negative (Negative); Ketones,Urine Negative (Negative); Leukocyte Esterase,Urine Negative (Negative); Nitrite,Urine Negative (Negative); PH, Urine 6.5 (5.0-8.0); Protein,Urine Trace (Negative); Specific Gravity,Urine 1.027 (1.001-1.035); Urobilinogen,Urine <2.0 mg/dL (<2.0)
--- NOTE | 2023-07-12 00:07 | CT ---
EXAM: CT Abdomen and Pelvis With Intravenous Contrast CLINICAL HISTORY: ITS.REASON CT Reason: epigastric pain TECHNIQUE: Axial computed tomography images of the abdomen and pelvis with intravenous contrast. CTDI is 18.4 mGy and DLP is 879 mGy-cm. This CT exam was performed using one or more of the following dose reduction techniques: automated exposure control, adjustment of the mA and/or kV according to patient size, and/or use of iterative reconstruction technique. COMPARISON: No relevant prior studies available. FINDINGS: Lung bases: Unremarkable. No mass. No consolidation. Mediastinum: Small hiatal hernia. ABDOMEN: Liver: Hepatic steatosis. Gallbladder and bile ducts: Unremarkable. No calcified stones. No ductal dilation. Pancreas: Unremarkable. No mass. No ductal dilation. Spleen: Unremarkable. No splenomegaly. Adrenals: Unremarkable. No mass. Kidneys and ureters: Unremarkable. No hydronephrosis or delayed nephrogram. Stomach and bowel: Diverticulosis, without acute diverticulitis. No small bowel obstruction. No free intraperitoneal air. PELVIS: Appendix: No findings to suggest acute appendicitis. Bladder: Decompressed urinary bladder with wall thickening, correlate for UTI. Urinalysis recommended. Reproductive: Unremarkable as visualized. ABDOMEN and PELVIS: Intraperitoneal space: Unremarkable. No free air. No significant fluid collection. Bones/joints: Degenerative changes of the spine. No acute fracture. No dislocation. Soft tissues: Unremarkable. Vasculature: Atherosclerotic changes of the aorta. No abdominal aortic aneurysm. Lymph nodes: Unremarkable. No enlarged lymph nodes. IMPRESSION: 1. Decompressed urinary bladder with wall thickening, correlate for UTI. Urinalysis recommended. 2. Hepatic steatosis. 3. Diverticulosis, without acute diverticulitis. No small bowel obstruction. No free intraperitoneal air.
--- NOTE | 2023-07-12 00:40 | ED ---
General Adult HPI - General Chief complaint: Nausea/Vomiting/Diarrhea Stated complaint: vomiting,jozef Time Seen by Provider: 07/11/23 20:58 Source: patient, RN notes reviewed Mode of arrival: wheelchair Limitations: no limitations - History of Present Illness Initial comments: 63-year-old -Mexican female with past medical history significant for hypertension and rheumatoid arthritis presents to the emergency department with a chief complaint of chest pain. Had a slight bout of chest pain that started approximately 4 PM. She reports that it was chest tightness. She reports subsequent nausea and vomiting that since improved her chest pain, pressure so feels that at times and describes as a dull ache.. Patient did not try anything at home for his symptoms. He denies any recent sick contacts. Denies shortness of breath, palpitations, fever cough. She is complaining of epigastric pain. He said denies tobacco product use. She has been taking her medications as prescribed. - Related Data Home Medications Medication Instructions Recorded Confirmed Indomethacin [Indocin] 50 mg PO BID PRN 09/12/22 09/12/22 Levothyroxine Sodium [Synthroid] 25 mcg PO DAILY 09/12/22 09/12/22 Previous Rx's Medication Instructions Recorded Propranolol HCl [Propranolol HCl 80 mg PO DAILY #0 09/14/22 ER] allopurinoL 100 mg PO DAILY #30 tab 09/14/22 amLODIPine [Norvasc] 2.5 mg PO DAILY #30 tablet 09/14/22 predniSONE 30 mg PO DAILY 5 Days #15 tab 09/14/22 Allergies Allergy/AdvReac Type Severity Reaction Status Date / Time adhesive Allergy Rash/Hives Verified 07/11/23 20:36 sulfamethoxazole Allergy Rash/Hives Verified 07/11/23 20:36 [From Bactrim] trimethoprim [From Bactrim] Allergy Rash/Hives Verified 07/11/23 20:36 lisinopril AdvReac Cough Verified 07/11/23 20:36 Review of Systems ROS Statement: Those systems with pertinent positive or pertinent negative responses have been documented in the HPI. ROS Other: All systems not noted in ROS Statement are negative. Past Medical History Past Medical History: Chest Pain / Angina, GERD/Reflux, Hypertension, Thyroid Disorder Additional Past Medical History / Comment(s): gout History of Any Multi-Drug Resistant Organisms: None Reported Past Surgical History: Appendectomy, Hysterectomy Additional Past Surgical History / Comment(s): removal of cyst on right ovary, Past Anesthesia/Blood Transfusion Reactions: No Reported Reaction Past Psychological History: No Psychological Hx Reported Smoking Status: Current every day smoker Past Alcohol Use History: Daily Past Drug Use History: None Reported General Exam - General Exam Comments Initial Comments: General: Alert, in no acute distress Head: atraumatic normocephalic. Eyes PERRL, EOMI intact, mucous membranes moist Respiratory: Lungs clear to auscultation bilaterally Cardiovascular: Heart rate regular rate and rhythm Abdominal: Soft without guarding or rebound, epigastric tenderness. Mueller sign negative. Extremities: Normal inspection with full range of motion and normal capillary refill Neuroogic: alert and oriented 3, CN II-XII intact, able to ambulate with steady gait Skin: warm dry and intact with normal color Limitations: no limitations Course Vital Signs 07/11/23 07/11/23 07/11/23 20:36 22:00 23:53 Temperature 97.3 F L Pulse Rate 110 H 81 96 Respiratory 20 18 18 Rate Blood Pressure 118/77 139/98 121/87 O2 Sat by Pulse 100 100 100 Oximetry - Reevaluation(s) Reevaluation #1: 07/12/23 00:52 Case is discussed with ELOINA Turpin who agrees and accepts patient for admission. Medical Decision Making - Medical Decision Making Was pt. sent in by a medical professional or institution ([facility]BER[facility] Cheek, [employer], urgent care, hospital, or half-way...) When possible be specific @ -[No] Did you speak to anyone other than the patient for history (EMS, parent, family, police, friend...)? What history was obtained from this source @ -[No] Did you review nursing and triage notes (agree or disagree)? Why? @ -[I reviewed and agree with nursing and triage notes] Were old charts reviewed (outside hosp., previous admission, EMS record, old EKG, old radiological studies, urgent care reports/EKG's, half-way records)? Report findings @ -Previous EKG reviewed Differential Diagnosis (chest pain, altered mental status, abdominal pain women, abdominal pain men, vaginal bleeding, weakness, fever, dyspnea, syncope, headache, dizziness, GI bleed, back pain, seizure, CVA, palpatations, mental health, musculoskeletal)? @ -[not applicable] EKG interpreted by me (3pts min.). @ -[As above X-rays interpreted by me (1pt min.). @ -[None done] CT interpreted by me (1pt min.). @ -No evidence of bowel obstruction, nephrolithiasis. There is diverticulosis without diverticulitis, U/S interpreted by me (1pt. min.). @ -[None done] What testing was considered but not performed or refused? (CT, X-rays, U/S, labs)? Why? @ -[None] What meds were considered but not given or refused? Why? @ -[None] Did you discuss the management of the patient with other professionals (professionals i.e. , PA, WOOD BOATBUILDER, lab, RT, psych nurse, social sciences department chair, key worker, teacher, commercial loan collection officer, outsole caser)? Give summary @ -ELOINA Turpin who agrees and accepts the patient for admission with consult to cardiology Was smoking cessation discussed for >3mins.? @ -[No] Was critical care preformed (if so, how long)? @ -[No] Were there social determinants of health that impacted care today? How? (Homelessness, low income, unemployed, alcoholism, drug addiction, tr ansportation, low edu. Level, literacy, decrease access to med. care, penitentiary, rehab)? @ -[No] Was there de-escalation of care discussed even if they declined (Discuss DNR or withdrawal of care, Hospice)? DNR status @ -[No] What co-morbidities impacted this encounter? (DM, HTN, Smoking, COPD, CAD, Cancer, CVA, ARF, Chemo, Hep., AIDS, mental health diagnosis, sleep apnea, morbid obesity)? @ -[None] Was patient admitted / discharged? Hospital course, mention meds given and route, prescriptions, significant lab abnormalities, going to OR and other pertinent info. @ -Admission. This is a 63-year-old -Mexican female who presents the emergency department with a chief complaint chest pain. Patient had a thorough history and physical exam performed. Heart rate regular rate and rhythm, lungs are to auscultation bilaterally abdomen soft and nontender. Vital signs are stable patient had imaging performed which was unremarkable. There are mild EKG changes. Patient had laboratory studies which revealed WBC 2.4 hemoglobin 12.6 sodium 135, potassium 4.1 BUN 13, creatinine 1.19 lactic acid 2.8 initial troponin negative urinalysis negative. Covid influenza RSV negative.. Patient was given GI cocktail, Toradol, 1 L IV fluids without dramatic improvement. Patient provided morphine and aspirin. She is agreeable with the plan for admission for further observation. Case is discussed with [facility] who agrees and accepts. Case is discussed with Dr. Will, ED attending who agrees with plan of care Undiagnosed new problem with uncertain prognosis? @ -[No] Drug Therapy requiring intensive monitoring for toxicity (Heparin, Nitro, Insulin, Cardizem)? @ -[No] Were any procedures done? @ -[No] Diagnosis/symptom? @ -Nausea and Vomiting - Chest Pain Acute, or Chronic, or Acute on Chronic? @ Acute Uncomplicated (without systemic symptoms) or Complicated (systemic symptoms)? @ -Uncomplicated Side effects of treatment? @ -[No] Exacerbation, Progression, or Severe Exacerbation? @ -[No] Poses a threat to life or bodily function? How? (Chest pain, USA, CT, pneumonia, PE, COPD, DKA, ARF, appy, cholecystitis, CVA, Diverticulitis, Homicidal, Suicidal, threat to staff... and all critical care pts) @ -Yes, Chest pain - Lab Data Result diagrams: 07/11/23 21:20 07/11/23 21:20 Lab Results 07/11/23 07/11/23 07/11/23 Range/Units 21:20 21:20 21:20 WBC 2.4 L (3.8-10.6) k/uL RBC 3.69 L (3.80-5.40) m/uL Hgb 12.6 (11.4-16.0) gm/dL Hct 36.1 (34.0-46.0) % MCV 98.1 (80.0-100.0) fL MCH 34.3 (25.0-35.0) pg MCHC 35.0 (31.0-37.0) g/dL RDW 15.8 H (11.5-15.5) % Plt Count 306 (150-450) k/uL MPV 7.3 Neutrophils % 67 % Lymphocytes % 23 % Monocytes % 5 % Eosinophils % 3 % Basophils % 1 % Neutrophils # 1.6 (1.3-7.7) k/uL Lymphocytes # 0.6 L (1.0-4.8) k/uL Monocytes # 0.1 (0-1.0) k/uL Eosinophils # 0.1 (0-0.7) k/uL Basophils # 0.0 (0-0.2) k/uL Macrocytosis Slight Sodium 135 L (137-145) mmol/L Potassium 4.1 (3.5-5.1) mmol/L Chloride 96 L (98-107) mmol/L Carbon Dioxide 22 (22-30) mmol/L Anion Gap 17 mmol/L BUN 13 (7-17) mg/dL Creatinine 1.19 H (0.52-1.04) mg/dL Est GFR (CKD-EPI)AfAm 55 (>60 ml/min/1.73 sqM) Est GFR (CKD-EPI)NonAf 48 (>60 ml/min/1.73 sqM) Glucose 115 H (74-99) mg/dL Lactic Ac Sepsis Rflx Plasma Lactic Acid Demarco (0.7-2.0) mmol/L Calcium 9.6 (8.4-10.2) mg/dL Total Bilirubin 1.5 H (0.2-1.3) mg/dL AST 50 H (14-36) U/L ALT 30 (4-34) U/L Alkaline Phosphatase 98 (38-126) U/L Troponin I <0.012 (0.000-0.034) ng/mL Total Protein 8.9 H (6.3-8.2) g/dL Albumin 4.9 (3.5-5.0) g/dL Amylase 76 (30-110) U/L Lipase 93 (23-300) U/L Urine Color Urine Appearance (Clear) Urine pH (5.0-8.0) Ur Specific [place] (1.001-1.035) Urine Protein (Negative) Urine Glucose (UA) (Negative) Urine Ketones (Negative) Urine Blood (Negative) Urine Nitrite (Negative) Urine Bilirubin (Negative) Urine Urobilinogen (<2.0) mg/dL Ur Leukocyte Esterase (Negative) Influenza Type A (PCR) (Not Detectd) Influenza Type B (PCR) (Not Detectd) RSV (PCR) (Not Detectd) SARS-CoV-2 (PCR) (Not Detectd) 07/11/23 07/11/23 07/11/23 Range/Units 23:06 23:21 23:28 WBC (3.8-10.6) k/uL RBC (3.80-5.40) m/uL Hgb (11.4-16.0) gm/dL Hct (34.0-46.0) % MCV (80.0-100.0) fL MCH (25.0-35.0) pg MCHC (31.0-37.0) g/dL RDW (11.5-15.5) % Plt Count (150-450) k/uL MPV Neutrophils % % Lymphocytes % % Monocytes % % Eosinophils % % Basophils % % Neutrophils # (1.3-7.7) k/uL Lymphocytes # (1.0-4.8) k/uL Monocytes # (0-1.0) k/uL Eosinophils # (0-0.7) k/uL Basophils # (0-0.2) k/uL Macrocytosis Sodium (137-145) mmol/L Potassium (3.5-5.1) mmol/L Chloride (98-107) mmol/L Carbon Dioxide (22-30) mmol/L Anion Gap mmol/L BUN (7-17) mg/dL Creatinine (0.52-1.04) mg/dL Est GFR (CKD-EPI)AfAm (>60 ml/min/1.73 sqM) Est GFR (CKD-EPI)NonAf (>60 ml/min/1.73 sqM) Glucose (74-99) mg/dL Lactic Ac Sepsis Rflx Y Plasma Lactic Acid Demarco 2.8 H* (0.7-2.0) mmol/L Calcium (8.4-10.2) mg/dL Total Bilirubin (0.2-1.3) mg/dL AST (14-36) U/L ALT (4-34) U/L Alkaline Phosphatase (38-126) U/L Troponin I (0.000-0.034) ng/mL Total Protein (6.3-8.2) g/dL Albumin (3.5-5.0) g/dL Amylase (30-110) U/L Lipase (23-300) U/L Urine Color Urine Appearance (Clear) Urine pH (5.0-8.0) Ur Specific [place] (1.001-1.035) Urine Protein (Negative) Urine Glucose (UA) (Negative) Urine Ketones (Negative) Urine Blood (Negative) Urine Nitrite (Negative) Urine Bilirubin (Negative) Urine Urobilinogen (<2.0) mg/dL Ur Leukocyte Esterase (Negative) Influenza Type A (PCR) Not Detected (Not Detectd) Influenza Type B (PCR) Not Detected (Not Detectd) RSV (PCR) Not Detected (Not Detectd) SARS-CoV-2 (PCR) Not Detected (Not Detectd) 07/11/23 Range/Units 23:45 WBC (3.8-10.6) k/uL RBC (3.80-5.40) m/uL Hgb (11.4-16.0) gm/dL Hct (34.0-46.0) % MCV (80.0-100.0) fL MCH (25.0-35.0) pg MCHC (31.0-37.0) g/dL RDW (11.5-15.5) % Plt Count (150-450) k/uL MPV Neutrophils % % Lymphocytes % % Monocytes % % Eosinophils % % Basophils % % Neutrophils # (1.3-7.7) k/uL Lymphocytes # (1.0-4.8) k/uL Monocytes # (0-1.0) k/uL Eosinophils # (0-0.7) k/uL Basophils # (0-0.2) k/uL Macrocytosis Sodium (137-145) mmol/L Potassium (3.5-5.1) mmol/L Chloride (98-107) mmol/L Carbon Dioxide (22-30) mmol/L Anion Gap mmol/L BUN (7-17) mg/dL Creatinine (0.52-1.04) mg/dL Est GFR (CKD-EPI)AfAm (>60 ml/min/1.73 sqM) Est GFR (CKD-EPI)NonAf (>60 ml/min/1.73 sqM) Glucose (74-99) mg/dL Lactic Ac Sepsis Rflx Plasma Lactic Acid Demarco (0.7-2.0) mmol/L Calcium (8.4-10.2) mg/dL Total Bilirubin (0.2-1.3) mg/dL AST (14-36) U/L ALT (4-34) U/L Alkaline Phosphatase (38-126) U/L Troponin I (0.000-0.034) ng/mL Total Protein (6.3-8.2) g/dL Albumin (3.5-5.0) g/dL Amylase (30-110) U/L Lipase (23-300) U/L Urine Color Colorless Urine Appearance Clear (Clear) Urine pH 6.5 (5.0-8.0) Ur Specific [place] 1.027 (1.001-1.035) Urine Protein Trace H (Negative) Urine Glucose (UA) Negative (Negative) Urine Ketones Negative (Negative) Urine Blood Negative (Negative) Urine Nitrite Negative (Negative) Urine Bilirubin Negative (Negative) Urine Urobilinogen <2.0 (<2.0) mg/dL Ur Leukocyte Esterase Negative (Negative) Influenza Type A (PCR) (Not Detectd) Influenza Type B (PCR) (Not Detectd) RSV (PCR) (Not Detectd) SARS-CoV-2 (PCR) (Not Detectd) Disposition Clinical Impression: Nausea and vomiting, Chest pain Disposition: ADMITTED IP TO THIS HOSP Condition: Fair Is patient prescribed a controlled substance at d/c from ED?: No Time of Disposition: 00:40
[2023-07-12] MEDS ORDERED: NALOXONE 0.4 MG/ML 1 ML VIAL IV PRN (00:53)
[2023-07-12] MEDS ORDERED: ASPIRIN 325 MG TAB PO STA (00:53)
[2023-07-12] MEDS ORDERED: ONDANSETRON 4 MG/2 ML VIAL IVP PRN (00:53)
[2023-07-12] MEDS: SODIUM CHLORIDE 0.9% 1,000 ML IV SCH ×2 (01:45→15:35)
[2023-07-12] MEDS: MORPHINE SULFATE 4 MG/ML SYRINGE IV PRN ×3 (06:06→16:31)
[2023-07-12] MEDS: PANTOPRAZOLE 40 MG TABLET PO SCH (10:38)
[2023-07-12] MEDS: MAG HYDROX/AL HYDROX/SIMETH 30 ML CUP PO SCH ×4 (10:38→20:35)
--- NOTE | 2023-07-12 10:41 | P.CRDCN ---
History of Present Illness Consult date: 07/12/23 Consult reason: chest pain Chief complaint: pain all over History of present illness: History of present illness: Patient is a pleasant 63-year-old female with significant past medical history of hypertension and rheumatoid arthritis who presented to the emergency department with pain and nausea and vomiting. She reports that yesterday she was having pain all over and then had vomiting and diarrhea. This progressively got worse and she began to have chest pain and shortness of breath as well as diaphoresis. 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 She was given a GI cocktail and toradol without improvement. She reports that her pain did improve with morphine. She was stopped on methotraxate last week due to low WBC. Labs reviewed: Troponin negative 3, WBC 2.4, d-dimer 1.49, creatinine 1.19. EKG was abnormal with new T-wave inversions in inferior leads which is a change from prior EKG. She is feeling a little better today but is still having some pain all over, requiring morphine when necessary. REVIEW OF SYSTEMS: No fever or chills. No cough or expectoration. No diaphoresis. Patient denies headache, dizziness, blurred vision, double vision. Patient denies any stomach discomfort. Reports nausea, vomiting. No hematochezia. No hematemesis. Denies any black stools or blood in his stools. Denies dysuria or hematuria. No muscle weakness or numbness. Ports pain all over. Feet burning numb. PHYSICAL EXAMINATION: This is a 63-year-old female in no apparent distress at the time of my examination. HEENT: Head is atraumatic, normocephalic. Pupils are equal, round. Sclerae anicteric. Conjunctivae are clear. Mucous membranes of the mouth are moist. Neck is supple. There is no jugular venous distention. No carotid bruit is heard. CHEST EXAMINATION: Lungs are clear to auscultation. No chest wall tenderness is noted on palpation or with deep breathing. HEART EXAMINATION: Heart regular rate and rhythm. S1, S2 heard. No murmurs, gallops or rub. ABDOMEN: Soft, nontender. Bowel sounds are heard. EXTREMITIES: 2+ peripheral pulses with no evidence of peripheral edema and no calf tenderness noted. Swelling of joints hands. NEUROLOGIC EXAMINATION: Patient is awake, alert and oriented x3. IMPRESSION AND PLAN: 1. Hypertension 2. Rheumatoid arthritis 3. Nausea, vomiting 4. Dyspnea 5. Abnormal EKG 6. Chest pain PLAN: We will check ECHO to eval heart function or structure. Will check lexiscan stress test in am given EKG changes to rule out inducible ischemia. Further recommendations after testing. Will follow. I am dictating on behalf of Dr. Mohinder Rachel's history/physical and assessment/plan. Past Medical History Past Medical History: Chest Pain / Angina, GERD/Reflux, Hypertension, Thyroid Disorder Additional Past Medical History / Comment(s): gout History of Any Multi-Drug Resistant Organisms: None Reported Past Surgical History: Appendectomy, Hysterectomy Additional Past Surgical History / Comment(s): removal of cyst on right ovary, Past Anesthesia/Blood Transfusion Reactions: No Reported Reaction Past Psychological History: No Psychological Hx Reported Smoking Status: Current every day smoker Past Alcohol Use History: Daily Past Drug Use History: None Reported Medications and Allergies Home Medications Medication Instructions Recorded Confirmed Type Indomethacin [Indocin] 50 mg PO BID PRN 09/12/22 09/12/22 History Levothyroxine Sodium [Synthroid] 25 mcg PO DAILY 09/12/22 09/12/22 History Propranolol HCl [Propranolol HCl 80 mg PO DAILY #0 09/14/22 09/12/22 Rx ER] allopurinoL 100 mg PO DAILY #30 tab 09/14/22 Rx amLODIPine [Norvasc] 2.5 mg PO DAILY #30 tablet 09/14/22 Rx predniSONE 30 mg PO DAILY 5 Days #15 tab 09/14/22 Rx Allergies Allergy/AdvReac Type Severity Reaction Status Date / Time adhesive Allergy Rash/Hives Verified 07/11/23 20:36 sulfamethoxazole Allergy Rash/Hives Verified 07/11/23 20:36 [From Bactrim] trimethoprim [From Bactrim] Allergy Rash/Hives Verified 07/11/23 20:36 lisinopril AdvReac Cough Verified 07/11/23 20:36 Physical Exam Vitals: Vital Signs Temp Pulse Resp BP Pulse Ox 07/12/23 04:00 92 18 122/70 100 07/11/23 23:53 96 18 121/87 100 07/11/23 22:00 81 18 139/98 100 07/11/23 20:36 97.3 F L 110 H 20 118/77 100 Intake and Output 07/11/23 07/12/23 07/12/23 22:59 06:59 14:59 Other: Weight 74.843 kg Results 07/11/23 21:20 07/11/23 21:20 Cardiac Enzymes 07/11/23 07/11/23 07/12/23 Range/Units 21:20 21:20 01:35 AST 50 H (14-36) U/L Troponin I <0.012 <0.012 (0.000-0.034) ng/mL 07/12/23 07/12/23 Range/Units 03:44 07:08 AST (14-36) U/L Troponin I <0.012 <0.012 (0.000-0.034) ng/mL CBC 07/11/23 Range/Units 21:20 WBC 2.4 L (3.8-10.6) k/uL RBC 3.69 L (3.80-5.40) m/uL Hgb 12.6 (11.4-16.0) gm/dL Hct 36.1 (34.0-46.0) % Plt Count 306 (150-450) k/uL Comprehensive Metabolic Panel 07/11/23 Range/Units 21:20 Sodium 135 L (137-145) mmol/L Potassium 4.1 (3.5-5.1) mmol/L Chloride 96 L (98-107) mmol/L Carbon Dioxide 22 (22-30) mmol/L BUN 13 (7-17) mg/dL Creatinine 1.19 H (0.52-1.04) mg/dL Glucose 115 H (74-99) mg/dL Calcium 9.6 (8.4-10.2) mg/dL AST 50 H (14-36) U/L ALT 30 (4-34) U/L Alkaline Phosphatase 98 (38-126) U/L Total Protein 8.9 H (6.3-8.2) g/dL Albumin 4.9 (3.5-5.0) g/dL Current Medications Generic Name Dose Route Start Last Admin Trade Name Freq PRN Reason Stop Dose Admin Sodium Chloride 1,000 mls @ 75 mls/hr 07/12/23 01:00 07/12/23 01:45 Saline 0.9% IV 75 mls/hr .[id number] ANNMARIE Administration Morphine Sulfate 4 mg 07/12/23 00:53 07/12/23 06:06 Morphine Sulfate 4 Mg/Ml Syringe IV 4 mg Q4HR PRN Administration Severe Pain (Scale 7 to 10) Naloxone HCl 0.2 mg 07/12/23 00:53 Naloxone 0.4 Mg/Ml 1 Ml Vial IV Q2M PRN Opioid Reversal Ondansetron HCl 4 mg 07/12/23 00:53 Ondansetron 4 Mg/2 Ml Vial IVP Q8HR PRN Nausea And Vomiting Intake and Output 07/11/23 07/12/23 07/12/23 22:59 06:59 14:59 Other: Weight 74.843 kg 07/11/23 21:20 07/11/23 21:20
--- NOTE | 2023-07-12 12:18 | P.HPIM ---
History of Present Illness H&P Date: 07/12/23 History of present illness; patient is a 63-year-old lady with past medical hist ory significant for hypertension, rheumatoid arthritis, hypothyroidism and the ER because of chest pain. Patient stated that she was all right yesterday afternoon when she started experiencing chest pain was central in location, pressure-like and dull in nature, nonradiating, no aggravating or relieving factors associated with this chest pain, patient did notice nausea and vomiting during that time. Denied any shortness of breath. Denies any palpitations. There was no complain of fever or chills. Later on patient also started experiencing epigastric pain. Because of this chest pain and associated epigastric pain, patient presented to the ER Initial lab work done in the ER showed WBC is 2.4, hemoglobin 12.6, platelet count 306, sodium 135, potassium 4.1, BUNs 13, creatinine 1.19, bilirubin 1.5, AST 50, UA negative for infection Influenza A not detected Influenza B not detected RSV not detected COVID-19 not detected EKG done in the ER showed heart rate of 84 , no ST segment elevation or depression seen, T-wave inversions seen in leads 2,[address] abdomen done showed decompressed urinary bladder with wall thickening, hepatic steatosis, diverticulosis without acute diverticulitis Patient admitted to internal medicine service REVIEW OF SYSTEMS: CONSTITUTIONAL: No fever, no malaise, no fatigue. HEENT: No recent visual problems or hearing problems. Denied any sore throat. CARDIOVASCULAR: As mentioned in HPI PULMONARY: As mentioned in HPI GASTROINTESTINAL: As mentioned in HPI NEUROLOGICAL: No headaches, no weakness, no numbness. HEMATOLOGICAL: Denies any bleeding or petechiae. GENITOURINARY: Denies any burning micturition, frequency, or urgency. MUSCULOSKELETAL/RHEUMATOLOGICAL: Denies any joint pain, swelling, or any muscle pain. ENDOCRINE: Denies any polyuria or polydipsia. The rest of the 14-point review of systems is negative. PHYSICAL EXAMINATION: GENERAL: The patient is alert and oriented x3, not in any acute distress. Well developed, well nourished. HEENT: Pupils are round and equally reacting to light. EOMI. No scleral icterus. No conjunctival pallor. Normocephalic, atraumatic. No pharyngeal erythema. No thyromegaly. CARDIOVASCULAR: S1 and S2 present. No murmurs, rubs, or gallops. PULMONARY: Chest is clear to auscultation, no wheezing or crackles. ABDOMEN: Soft, nontender, nondistended, normoactive bowel sounds. No palpable organomegaly. MUSCULOSKELETAL: No joint swelling or deformity. EXTREMITIES: No cyanosis, clubbing, or pedal edema. NEUROLOGICAL: Gross neurological examination did not reveal any focal deficits. SKIN: No rashes. Assessment and plan Chest pain Abnormal EKG Hypothyroidism Hypertension Monitor vital signs Monitor CBC Monitor CMP Continue telemetry monitoring Trend troponins. Ordered d-dimer Ordered ultrasound abdominal. Results of CT abdominal pelvis reviewed. Resume home meds Consult cardiology Labs and medication were reviewed.. Continue same treatment. Continue with symptomatic treatment. Resume home medication. Monitor labs and vitals. DVT and GI prophylaxis. Further recommendations as per clinical course of the patient Dictation was produced using [employer] dictation software. please excuse any grammatical, word or spelling errors. Past Medical History Past Medical History: Chest Pain / Angina, GERD/Reflux, Hypertension, Thyroid Disorder Additional Past Medical History / Comment(s): gout History of Any Multi-Drug Resistant Organisms: None Reported Past Surgical History: Appendectomy, Hysterectomy Additional Past Surgical History / Comment(s): removal of cyst on right ovary, Past Anesthesia/Blood Transfusion Reactions: No Reported Reaction Past Psychological History: No Psychological Hx Reported Smoking Status: Current every day smoker Past Alcohol Use History: Daily Past Drug Use History: None Reported Medications and Allergies Home Medications Medication Instructions Recorded Confirmed Type Indomethacin [Indocin] 50 mg PO BID PRN 09/12/22 09/12/22 History Levothyroxine Sodium [Synthroid] 25 mcg PO DAILY 09/12/22 09/12/22 History Propranolol HCl [Propranolol HCl 80 mg PO DAILY #0 09/14/22 09/12/22 Rx ER] allopurinoL 100 mg PO DAILY #30 tab 09/14/22 Rx amLODIPine [Norvasc] 2.5 mg PO DAILY #30 tablet 09/14/22 Rx predniSONE 30 mg PO DAILY 5 Days #15 tab 09/14/22 Rx Allergies Allergy/AdvReac Type Severity Reaction Status Date / Time adhesive Allergy Rash/Hives Verified 07/11/23 20:36 sulfamethoxazole Allergy Rash/Hives Verified 07/11/23 20:36 [From Bactrim] trimethoprim [From Bactrim] Allergy Rash/Hives Verified 07/11/23 20:36 lisinopril AdvReac Cough Verified 07/11/23 20:36 Physical Exam Vitals: Vital Signs Temp Pulse Resp BP Pulse Ox 07/12/23 08:00 18 07/12/23 04:00 92 18 122/70 100 07/11/23 23:53 96 18 121/87 100 07/11/23 22:00 81 18 139/98 100 07/11/23 20:36 97.3 F L 110 H 20 118/77 100 Intake and Output 07/11/23 07/12/23 07/12/23 22:59 06:59 14:59 Other: Voiding Method Toilet Weight 74.843 kg 74.843 kg Results CBC & Chem 7: 07/11/23 21:20 07/11/23 21:20 Labs: Abnormal Lab Results - Last 24 Hours (Table) 07/11/23 07/11/23 07/11/23 Range/Units 21:20 21:20 23:06 WBC 2.4 L (3.8-10.6) k/uL RBC 3.69 L (3.80-5.40) m/uL RDW 15.8 H (11.5-15.5) % Lymphocytes # 0.6 L (1.0-4.8) k/uL Sodium 135 L (137-145) mmol/L Chloride 96 L (98-107) mmol/L Creatinine 1.19 H (0.52-1.04) mg/dL Glucose 115 H (74-99) mg/dL Plasma Lactic Acid Demarco 2.8 H* (0.7-2.0) mmol/L Total Bilirubin 1.5 H (0.2-1.3) mg/dL AST 50 H (14-36) U/L Total Protein 8.9 H (6.3-8.2) g/dL Urine Protein (Negative) 07/11/23 Range/Units 23:45 WBC (3.8-10.6) k/uL RBC (3.80-5.40) m/uL RDW (11.5-15.5) % Lymphocytes # (1.0-4.8) k/uL Sodium (137-145) mmol/L Chloride (98-107) mmol/L Creatinine (0.52-1.04) mg/dL Glucose (74-99) mg/dL Plasma Lactic Acid Demarco (0.7-2.0) mmol/L Total Bilirubin (0.2-1.3) mg/dL AST (14-36) U/L Total Protein (6.3-8.2) g/dL Urine Protein Trace H (Negative) Thrombosis Risk Factor Assmnt - Choose All That Apply Any of the Below Risk Factors Present?: Yes Each Factor Represents 1 point: Obesity (BMI >25) Other Risk Factors: Yes Each Risk Factor Represents 2 Points: Age 61-74 years Other congenital or acquired thrombophilia - If yes, enter type in comment: No Thrombosis Risk Factor Assessment Total Risk Factor Score: 3 Thrombosis Risk Factor Assessment Level: Moderate Risk
[2023-07-12 14:41] LABS: African American GFR (CKD) 48 (>60 ml/min/1.73 sqM); Anion Gap 12 mmol/L; Blood Urea Nitrogen 16 mg/dL (7-17); Calcium 8.3 mg/dL (8.4-10.2); Carbon Dioxide 25 mmol/L (22-30); Chloride 98 mmol/L (98-107); Glucose 91 mg/dL (74-99); Non-African American GFR(CKD) 41 (>60 ml/min/1.73 sqM); Potassium 3.6 mmol/L (3.5-5.1); Sodium 135 mmol/L (137-145)
--- NOTE | 2023-07-12 16:20 | US ---
EXAMINATION TYPE: US abdomen complete DATE OF EXAM: 07/12/2023 Exam done portable COMPARISON: CT 2022, US 2012 CLINICAL INDICATION: Female, 63 years old with history of Abdominal pain; TECHNIQUE: Multiple sonographic images of the abdomen are obtained. FINDINGS: EXAM MEASUREMENTS: Liver Length: 14.1 cm Gallbladder Wall: 0.2 cm CBD: 0.5 cm Spleen: not seen Right Kidney: 9.5 x 4.9 x 4.8 cm Left Kidney: 9.9 x 5.3 x 4.5 cm Pancreas: visualized portions wnl, limited by overlying midline bowel gas Liver: wnl Gallbladder: wnl Evidence for sonographic Mueller's sign: no CBD: visualized portions wnl, limited by overlying bowel gas Spleen: obscured by overlying bowel gas Right Kidney: wnl Left Kidney: visualized portions wnl, limited by overlying bowel gas Upper IVC: wnl Abd Aorta: visualized portions wnl The liver is homogenous. The intrahepatic portion of the IVC and proximal abdominal aorta are within normal limits. There is no evidence of cholelithiasis. Common bile duct is unremarkable. The visu alized portions of the pancreas are homogenous. The spleen is unremarkable. Kidneys are symmetric a nd free of hydronephrosis. No renal lesions are seen. IMPRESSION: No significant abnormality seen.
--- NOTE | 2023-07-12 23:15 | CT ---
EXAM: CT Angiography Chest With Intravenous Contrast CLINICAL HISTORY: ITS.REASON CT Reason: Dyspnea TECHNIQUE: Axial computed tomographic angiography images of the chest with intravenous contrast. CTDI is 25.6 mGy and DLP is 397.4 mGy-cm. This CT exam was performed using one or more of the following dose reduction techniques: automated exposure control, adjustment of the mA and/or kV according to patient size, and/or use of iterative reconstruction technique. MIP reconstructed images were created and reviewed. COMPARISON: 10/13/2020. FINDINGS: Pulmonary arteries: Peripheral branches the pulmonary arteries are unremarkable. Aorta: Thoracic aorta and central pulmonary arteries are unremarkable. No thoracic aortic aneurysm. Lungs: The airway is normal. Minimal scarring and subsegmental atelectasis in the mid lower lung zones. No mass. Pleural space: Unremarkable. No significant effusion. No pneumothorax. Heart: Heart is normal in size. No cardiomegaly. No significant pericardial effusion. No evidence of RV dysfunction. Mediastinum: Small hiatal hernia and distal esophagitis. Thyroid: Thyroid gland is unremarkable. Bones/joints: No acute fracture. No dislocation. Soft tissues: Unremarkable. Lymph nodes: Unremarkable. No enlarged lymph nodes. Other findings: Hypoaeration. IMPRESSION: 1. No central or peripheral pulmonary emboli. 2. Small hiatal hernia and distal esophagitis. 3. Fatty liver.
[2023-07-13] MEDS: MORPHINE SULFATE 4 MG/ML SYRINGE IV PRN (01:01)
[2023-07-13] MEDS: PANTOPRAZOLE 40 MG TABLET PO SCH (05:41)
[2023-07-13] MEDS: SODIUM CHLORIDE 0.9% 1,000 ML IV SCH ×2 (05:41→18:44)
[2023-07-13] MEDS ORDERED: REGADENOSON 0.4 MG/5 ML SYRINGE IV PRN (07:00)
[2023-07-13] MEDS ORDERED: CAFFEINE CITRATE 60 MG/3 ML VIAL IV PRN (07:00)
[2023-07-13] MEDS ORDERED: AMINOPHYLLINE 500 MG/20 ML VIAL IV PRN (07:00)
[2023-07-13 09:05] LABS: Basophils # (A) 0.03 X 10*3/uL (0.00-0.10); Basophils % (A) 0.9 %; Eosinophils # (A) 0.22 X 10*3/uL (0.04-0.35); Eosinophils % (A) 6.9 %; HCT 33.3 % (37.2-46.3); Lymphocytes # (A) 1.16 X 10*3/uL (0.90-5.00); Lymphocytes % (A) 36.6 %; MCH 33.3 pg (27.0-32.0); MCV 100.9 FL (80.0-97.0); Monocytes # (A) 0.38 X 10*3/uL (0.20-1.00); NRBC Per 100 WBC 0 X 10*3/uL (0.00-0.01); Neutrophils # (A) 1.37 X 10*3/uL (1.80-7.70); Neutrophils % (A) 43.3 %; Platelet Count 275 X 10*3/uL (140-440); RDW 15.6 % (11.5-14.5); WBC 3.17 X 10*3/uL (4.50-10.00)
[2023-07-13 09:31] LABS: Blood Urea Nitrogen 13.4 mg/dL (9.0-27.0); Calcium 8.5 mg/dL (8.7-10.3); Carbon Dioxide 26.5 mmol/L (21.6-31.8); Chloride 100 mmol/L (96-109); Glucose 93 mg/dL (70-110); Potassium 4.1 mmol/L (3.5-5.5); Sodium 136 mmol/L (135-145)
--- NOTE | 2023-07-13 10:10 | P.CRDCN ---
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 Patient presented to the hospital with chest pain. Patient examined this morning at the bedside. Patient denies any further episodes of chest pain or pressure since coming to the hospital. She denies any shortness of breath. She reports improvement in her nausea and vomiting as well. Patient was found to have elevated d-dimer. She underwent chest CT which was negative for pulmonary embolism. Vital signs are stable. Telemetry reveals sinus mechanism. PHYSICAL EXAM: VITAL SIGNS: Reviewed. GENERAL: Well-developed in no acute distress. NECK: Supple. No JVD or thyromegaly LUNGS: Respirations even and unlabored. Lungs essentially clear to auscultation bilaterally. HEART: Regular rate and rhythm. S1 and S2 heard. EXTREMITIES: Normal range of motion. No clubbing or cyanosis. Peripheral pulses intact. No lower extremity edema ASSESSMENT: Nausea and vomiting Acute kidney injury, resolved Chest pain, troponins negative 3 Abnormal EKG revealing T-wave inversions inferiorly History of rheumatoid arthritis Hypertension Hypothyroidism PLAN: 2-D echo has been ordered. Await results. Resume home cardiac medications Patient to undergo Lexiscan stress test today If negative, patient may be discharged home from a cardiac standpoint and follow up on an outpatient basis Nurse practitioner note has been reviewed by physician. Signing provider agrees with the documented findings, assessment, and plan of care. Past Medical History Past Medical History: Chest Pain / Angina, GERD/Reflux, Hypertension, Thyroid Disorder Additional Past Medical History / Comment(s): gout History of Any Multi-Drug Resistant Organisms: None Reported Past Surgical History: Appendectomy, Hysterectomy Additional Past Surgical History / Comment(s): removal of cyst on right ovary, Past Anesthesia/Blood Transfusion Reactions: No Reported Reaction Past Psychological History: No Psychological Hx Reported Smoking Status: Current every day smoker Past Alcohol Use History: Daily Past Drug Use History: None Reported Medications and Allergies Home Medications Medication Instructions Recorded Confirmed Type Levothyroxine Sodium [Synthroid] 25 mcg PO DAILY 09/12/22 07/12/23 History Propranolol HCl [Propranolol HCl 80 mg PO DAILY #0 09/14/22 07/12/23 Rx ER] amLODIPine [Norvasc] 2.5 mg PO DAILY #30 tablet 09/14/22 07/12/23 Rx Albuterol Inhaler [Ventolin Hfa 1 - 2 puff INHALATION RT-Q6H PRN 07/12/23 07/12/23 History Inhaler] Chlorthalidone [Hygroton] 25 mg PO DAILY 07/12/23 07/12/23 History Allergies Allergy/AdvReac Type Severity Reaction Status Date / Time adhesive Allergy Rash/Hives Verified 07/12/23 12:41 sulfamethoxazole Allergy Rash/Hives Verified 07/12/23 12:41 [From Bactrim] trimethoprim [From Bactrim] Allergy Rash/Hives Verified 07/12/23 12:41 lisinopril AdvReac Cough Verified 07/12/23 12:41 Physical Exam Vitals: Vital Signs Temp Pulse Resp BP Pulse Ox 07/13/23 07:00 98.1 F 79 16 145/88 95 07/13/23 02:53 69 16 07/13/23 02:00 98.1 F 70 16 136/74 96 07/12/23 20:35 69 16 07/12/23 20:00 98.0 F 69 16 100/64 99 07/12/23 15:00 97.8 F 63 16 143/82 98 07/12/23 14:00 62 16 Intake and Output 07/12/23 07/13/23 07/13/23 22:59 06:59 14:59 Other: Voiding Method Toilet Toilet # Voids 2 2 Results 07/13/23 05:43 07/13/23 05:43 CBC 07/13/23 Range/Units 05:43 WBC 3.17 L (4.50-10.00) X 10*3/uL RBC 3.30 L (4.10-5.20) X 10*6/uL Hgb 11.0 L (12.0-15.0) g/dL Hct 33.3 L (37.2-46.3) % Plt Count 275 (140-440) X 10*3/uL Comprehensive Metabolic Panel 07/12/23 07/13/23 Range/Units 14:03 05:43 Sodium 135 L 136 (137-145) mmol/L Potassium 3.6 4.1 (3.5-5.1) mmol/L Chloride 98 100 (98-107) mmol/L Carbon Dioxide 25 26.5 (22-30) mmol/L BUN 16 13.4 (7-17) mg/dL Creatinine 1.35 H 1.0 (0.52-1.04) mg/dL Glucose 91 93 (74-99) mg/dL Calcium 8.3 L 8.5 L (8.4-10.2) mg/dL Current Medications Generic Name Dose Route Start Last Admin Trade Name Freq PRN Reason Stop Dose Admin Al Hydroxide/Mg Hydroxide 30 ml 07/12/23 10:00 07/12/23 20:35 Mag Hydrox/Al Hydrox/Simeth 30 Ml Cup PO 30 ml QID ANNMARIE Administration Aminophylline 100 mg 07/13/23 07:00 Aminophylline 500 Mg/20 Ml Vial IV 07/13/23 14:00 ONCE PRN Patient Response Amlodipine Besylate 2.5 mg 07/13/23 10:15 Amlodipine 2.5 Mg Tab PO DAILY ANNMARIE Caffeine Citrate 60 mg 07/13/23 07:00 Caffeine Citrate 60 Mg/3 Ml Vial IV 07/13/23 14:00 ONCE PRN Patient Response Chlorthalidone 25 mg 07/13/23 10:15 Chlorthalidone 25 Mg Tab PO DAILY [facility] Sodium Chloride 1,000 mls @ 75 mls/hr 07/12/23 01:00 07/13/23 05:41 Saline 0.9% IV 75 mls/hr .[id number] ANNMARIE Administration Morphine Sulfate 4 mg 07/12/23 00:53 07/13/23 01:01 Morphine Sulfate 4 Mg/Ml Syringe IV 4 mg Q4HR PRN Administration Severe Pain (Scale 7 to 10) Naloxone HCl 0.2 mg 07/12/23 00:53 Naloxone 0.4 Mg/Ml 1 Ml Vial IV Q2M PRN Opioid Reversal Ondansetron HCl 4 mg 07/12/23 00:53 Ondansetron 4 Mg/2 Ml Vial IVP Q8HR PRN Nausea And Vomiting Pantoprazole Sodium 40 mg 07/12/23 10:00 07/13/23 05:41 Pantoprazole 40 Mg Tablet PO 40 mg [id number] ANNMARIE Administration Propranolol HCl 80 mg 07/14/23 09:00 Propranolol La 80 Mg Cap.Sa.24h PO DAILY ANNMARIE Regadenoson 0.4 mg 07/13/23 07:00 Regadenoson 0.4 Mg/5 Ml Syringe IV 07/13/23 14:00 ONCE PRN Per Protocol Intake and Output 07/12/23 07/13/23 07/13/23 22:59 06:59 14:59 Other: Voiding Method Toilet Toilet # Voids 2 2 07/13/23 05:43 07/13/23 05:43
[2023-07-13] MEDS ORDERED: amLODIPine 2.5 MG TAB PO SCH (10:15)
[2023-07-13] MEDS ORDERED: CHLORTHALIDONE 25 MG TAB PO SCH (10:15)
--- NOTE | 2023-07-13 11:23 | CA ---
Lexiscan Nuclear Stress Test Report Name: Araceli Ryan Exam Date: 07/13/2023 09:54 Exam Location: [place] Stress Ht (in): 66 Wt (lb): 165 BSA: 1.84 Ordering Phys: Kate Dailey NPC Referring Phys: KATE DAILEY,, Technologist: ELIZABET,, Age: 63 Gender: F : 1960 Procedure CPT: Indications: Reflex order-Stress test ICD-10 Codes: Patient History: Chest pain and shortness of breath Medications: Meds past 24 hrs: Pretest Chest Pain: STRESS TEST Lexiscan Protocol Exercise Duration (min:sec): 02:[address] Depressions (mm): Angina Score: Giang Score: Resting HR (bpm): 72 Peak HR (bpm): 97 Resting BP (mmHg): 123 / 98 Peak BP (mmHg): 121 / 86 MPHR: 155 Target HR: 132 % MPHR: 63 METS: 1.0 Total Dose: Peak Dose: Atropine: Double Product: 07033 BP Response: Stress Termination: Infusion complete Stress Symptoms: No chest pain or symptoms Stress Summary: ECG ANALYSIS Resting ECG: Sinus rhythm. Normal conduction. No arrhythmias. Non-specific ST-T wave changes. Stress ECG: No ECG changes from baseline with Lexiscan infusion. CONCLUSIONS No ECG evidence of ischemia with Lexiscan infusion. Nuclear test results to follow. Dr. Umair Ruelas MD (Electronically Signed) Final Date: 13 July 2023 11:22
--- NOTE | 2023-07-13 11:56 | P.PN ---
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 Patient presented to the hospital with chest pain. Patient examined this morning at the bedside. Patient denies any further episodes of chest pain or pressure since coming to the hospital. She denies any shortness of breath. She reports improvement in her nausea and vomiting as well. Patient was found to have elevated d-dimer. She underwent chest CT which was negative for pulmonary embolism. Vital signs are stable. Telemetry reveals sinus mechanism. PHYSICAL EXAM: VITAL SIGNS: Reviewed. GENERAL: Well-developed in no acute distress. NECK: Supple. No JVD or thyromegaly LUNGS: Respirations even and unlabored. Lungs essentially clear to auscultation bilaterally. HEART: Regular rate and rhythm. S1 and S2 heard. EXTREMITIES: Normal range of motion. No clubbing or cyanosis. Peripheral pulses intact. No lower extremity edema ASSESSMENT: Nausea and vomiting Acute kidney injury, resolved Chest pain, troponins negative 3 Abnormal EKG revealing T-wave inversions inferiorly History of rheumatoid arthritis Hypertension Hypothyroidism PLAN: 2-D echo has been ordered. Await results. Resume home cardiac medications Patient to undergo Lexiscan stress test today If negative, patient may be discharged home from a cardiac standpoint and follow up on an outpatient basis Nurse practitioner note has been reviewed by physician. Signing provider agrees with the documented findings, assessment, and plan of care. Objective - Vital Signs Vital signs: Vital Signs Temp 98.1 F 07/13/23 07:00 Pulse 79 07/13/23 07:00 Resp 16 07/13/23 08:00 BP 145/88 07/13/23 07:00 Pulse Ox 95 07/13/23 07:00 FiO2 Intake & Output 07/12/23 07/13/23 07/13/23 18:59 06:59 18:59 Intake Total 118 Balance 118 Weight 74.843 kg Intake: Oral 118 Other: Voiding Method Toilet Toilet Toilet # Voids 2 2 1 - Labs CBC & Chem 7: 07/13/23 05:43 07/13/23 05:43 Labs: Abnormal Lab Results - Last 24 Hours (Table) 07/12/23 07/12/23 07/13/23 Range/Units 12:01 14:03 05:43 WBC 3.17 L (4.50-10.00) X 10*3/uL RBC 3.30 L (4.10-5.20) X 10*6/uL Hgb 11.0 L (12.0-15.0) g/dL Hct 33.3 L (37.2-46.3) % MCV 100.9 H (80.0-97.0) FL MCH 33.3 H (27.0-32.0) pg RDW 15.6 H (11.5-14.5) % Neutrophils # 1.37 L (1.80-7.70) X 10*3/uL D-Dimer 1.21 H (<0.60) mg/L FEU Sodium 135 L (137-145) mmol/L Creatinine 1.35 H (0.52-1.04) mg/dL Calcium 8.3 L (8.4-10.2) mg/dL 07/13/23 Range/Units 05:43 WBC (4.50-10.00) X 10*3/uL RBC (4.10-5.20) X 10*6/uL Hgb (12.0-15.0) g/dL Hct (37.2-46.3) % MCV (80.0-97.0) FL MCH (27.0-32.0) pg RDW (11.5-14.5) % Neutrophils # (1.80-7.70) X 10*3/uL D-Dimer (<0.60) mg/L FEU Sodium (137-145) mmol/L Creatinine (0.52-1.04) mg/dL Calcium 8.5 L (8.4-10.2) mg/dL
[2023-07-13] MEDS: MAG HYDROX/AL HYDROX/SIMETH 30 ML CUP PO SCH ×3 (12:14→17:26)
--- NOTE | 2023-07-13 13:12 | CA ---
Transthoracic Echo Report Name: Araceli Ryan Age: 63 Gender: F : 1960 Exam Date: 07/13/2023 12:14 Exam Location: [place] Echo Ht (in): 66 Wt (lb): 165 Ordering Physician: Kate Tate Attending/Referring Phys: Metal Sash Setter Enrico Altman Procedure CPT: Indications: chest pain, abnormal ekg Cardiac Hx: Technical Quality: Fair Contrast 1: Definity Total Dose (mL): 2 Contrast 2: Total Dose (mL): MEASUREMENTS (Male / Female) Normal Values 2D ECHO LV Diastolic Diameter PLAX 3.8 cm 4.2 - 5.9 / 3.9 - 5.3 cm LV Systolic Diameter PLAX 2.8 cm IVS Diastolic Thickness 1.0 cm 0.6 - 1.0 / 0.6 - 0.9 cm LVPW Diastolic Thickness 1.2 cm 0.6 - 1.0 / 0.6 - 0.9 cm LV Relative Wall Thickness 0.6 RV Internal Dim ED PLAX 3.1 cm LVOT Diameter 2.1 cm Aortic Root Diameter 2.6 cm LA Systolic Diameter LX 2.0 cm 3.0 - 4.0 / 2.7 - 3.8 cm LV Diastolic Volume MOD BP 42.0 cm??? 67 - 155 / 56 - 104 cm??? LV Systolic Volume MOD BP 20.9 cm??? - 58 / 19 - 49 cm??? LV Ejection Fraction MOD BP 50.2 % >= 55 % LV Cardiac Index MOD BP 827.7 cm???/min???m??? LV Diastolic Volume MOD 4C 48.7 cm??? LV Systolic Volume MOD 4C 24.0 cm??? LV Ejection Fraction MOD 4C 50.8 % LV Cardiac Index MOD 4C 973.9 cm???/min???m??? LV Diastolic Length 4C 7.1 cm LV Systolic Length 4C 6.7 cm LV Diastolic Volume MOD 2C 35.9 cm??? LV Systolic Volume MOD 2C 17.1 cm??? LV Ejection Fraction MOD 2C 52.2 % LV Cardiac Index MOD 2C 736.9 cm???/min???m??? LV Diastolic Length 2C 7.0 cm LV Systolic Length 2C 6.2 cm LA Volume 33.1 cm??? 18 - 58 / 22 - 52 cm??? LA Volume Index 17.6 cm???/m??? 16 - 28 cm???/m??? DOPPLER AV Peak Velocity 127.5 cm/s AV Peak Gradient 6.5 mmHg LVOT Peak Velocity 107.7 cm/s LVOT Peak Gradient 4.6 mmHg LVOT Velocity Time Integral 21.7 cm LVOT Stroke Volume 72.6 cm??? LVOT Stroke Volume Index 39.4 ml/m??? LVOT Cardiac Index 2852.7 cm???/min???m??? AV Area Cont Eq pk 2.8 cm??? MV Peak Velocity 102.4 cm/s MV Peak Gradient 4.2 mmHg MV Mean Velocity 48.6 cm/s MV Mean Gradient 1.2 mmHg MV Velocity Time Integral 35.7 cm Mitral E Point Velocity 65.3 cm/s Mitral A Point Velocity 82.1 cm/s Mitral E to A Ratio 0.8 MV Deceleration Time 199.0 ms MV E' Velocity 5.7 cm/s Mitral E to MV E' Ratio 11.5 TR Peak Velocity 215.5 cm/s TR Peak Gradient 18.6 mmHg Right Ventricular Systolic Press 23.6 mmHg PV Peak Velocity 111.5 cm/s PV Peak Gradient 5.0 mmHg FINDINGS Left Ventricle Normal LV size . Left ventricular ejection fraction is estimated at 55-60 %.Mildly increased left ventricular wall thickness. Normal left ventricular wall motion. Right Ventricle Normal right ventricular size. Right Atrium Normal right atrial size. Left Atrium Normal left atrial size. Mitral Valve Structurally normal mitral valve. No mitral stenosis. No mitral regurgitation. Aortic Valve Trileaflet aortic valve. No aortic valve stenosis or regurgitation. Tricuspid Valve Structurally normal tricuspid valve. Trace TR. Pulmonic Valve Pulmonic valve not well visualized. No pulmonic stenosis. Pericardium Normal pericardium. Aorta Normal size aortic root CONCLUSIONS 1. Normal left ventricle size and systolic function 2. No significant valvular abnormality Previewed by: Dr. Umair Ruelas MD (Electronically Signed) Final Date: 13 July 2023 13:11
[2023-07-13] MEDS ORDERED: ACETAMINOPHEN TAB 325 MG TAB PO STA (14:24)
[2023-07-13 14:50] VITALS: BP 131/99; PULSE 90; RESP 14; TEMP 98.8
--- NOTE | 2023-07-14 07:35 | NM ---
EXAMINATION TYPE: NM stress lexiscan cardiolite DATE OF EXAM: 07/13/2023 COMPARISON: NONE CLINICAL INDICATION: Female, 63 years old with history of chest pain, abnormal EKG; TECHNIQUE: After the intravenous administration of 9.8 mCi Tc 99m Sestamibi - Cardiolite resting SPE CT images acquired 100 minutes post injection. The patient received 0.4mg Lexiscan, 26 mCi Tc 99m Sestamibi - Stress images obtained 55 minutes post injection FINDINGS: Review of stress and rest SPECT images demonstrates no distinct perfusion abnormality. Gated analysi s shows normal wall motion with an estimated left ventricular ejection fraction of 60 %. TID is incr eased at 1.24. IMPRESSION: While no localized reversibility is identified, TID is increased at 1.24. An elevated transient ische salome dilatation index can be seen in the setting of global, multivessel inducible ischemia. Further cl inical workup advised.
[2023-07-14] MEDS ORDERED: PROPRANOLOL LA 80 MG CAP.SA.24H PO SCH (09:00)
== END 2023-07-13 19:05 | disposition home or self-care (01) ==
LOC: EC 20:33 → 6NMEDSUR 07-12 00:53
PROVIDERS: ADMIT Hospitalist; ATTEND Hospitalist
DX: R07.89 Other chest pain (principal); R11.2 Nausea with vomiting, unspecified; N17.9 Acute kidney failure, unspecified; R06.00 Dyspnea, unspecified; R94.31 Abnormal electrocardiogram [ECG] [EKG]; I10 Essential (primary) hypertension; K21.9 Gastro-esophageal reflux disease without esophagitis; M06.9 Rheumatoid arthritis, unspecified; E03.9 Hypothyroidism, unspecified; F17.200 Nicotine dependence, unspecified, uncomplicated; Z20.822 Contact with and (suspected) exposure to COVID-19; Z79.890 Hormone replacement therapy; Z79.899 Other long term (current) drug therapy; Z88.2 Allergy status to sulfonamides
CPT/HCPCS: 96376 ×3; 96361 ×3; 96374; 96375; 99285; 36415; 93005; 93017; 85379; 80053; 80048 ×2; 82150; 83605 ×2; 83690; 84484 ×2; 85025 ×2; 81003; 83036; 87636; 76700; 71275; 74177; 78452; G0378 ×2; C8929; A9500; J2270 ×3; Q9957; J2785; J1885; Q9967 ×2; 93306

== ENCOUNTER 2023-11-16 12:38 | Emergency (ER) | payer MEDICARE ==
[2023-11-16] MEDS: SODIUM CHLORIDE 0.9% 1,000 ML IV STA (13:53)
[2023-11-16] MEDS: ONDANSETRON 4 MG/2 ML VIAL IVP STA (13:54)
[2023-11-16 14:18] LABS: ALT 25 U/L (4-34); African American GFR (CKD) 74 (>60 ml/min/1.73 sqM); Albumin 4.7 g/dL (3.5-5.0); Anion Gap 15 mmol/L; Blood Urea Nitrogen 10 mg/dL (7-17); Calcium 10.1 mg/dL (8.4-10.2); Carbon Dioxide 20 mmol/L (22-30); Chloride 100 mmol/L (98-107); Glucose 141 mg/dL (74-99); Lipase 81 U/L (23-300); Non-African American GFR(CKD) 64 (>60 ml/min/1.73 sqM); Sodium 135 mmol/L (137-145); Total Protein 8.6 g/dL (6.3-8.2)
[2023-11-16 14:23] LABS: AST 40 U/L (14-36); Potassium 3.8 mmol/L (3.5-5.1)
[2023-11-16 14:24] LABS: Alkaline Phosphatase 104 U/L (38-126)
[2023-11-16 14:26] VITALS: RESP 18
[2023-11-16 14:32] LABS: Basophils % (A) 1 %; Eosinophils # (A) 0.1 k/uL (0-0.7); Eosinophils % (A) 2 %; HCT 39.6 % (34.0-46.0); HGB 13.2 gm/dL (11.4-16.0); Lymphocytes # (A) 0.8 k/uL (1.0-4.8); Lymphocytes % (A) 22 %; MCH 32.4 pg (25.0-35.0); MCHC 33.3 g/dL (31.0-37.0); MCV 97.5 fL (80.0-100.0); Mean Platelet Volume 8.3; Monocytes # (A) 0.3 k/uL (0-1.0); Monocytes % (A) 9 %; Neutrophils # (A) 2.3 k/uL (1.3-7.7); Neutrophils % (A) 64 %; Platelet Count 223 k/uL (150-450); RBC 4.07 m/uL (3.80-5.40); RDW 13.4 % (11.5-15.5); WBC 3.6 k/uL (3.8-10.6)
--- NOTE | 2023-11-16 15:17 | ED ---
Abdominal Pain HPI - General Chief Complaint: Abdominal Pain Stated Complaint: SOB Time Seen by Provider: 11/16/23 13:11 Source: patient Mode of arrival: ambulatory Limitations: no limitations - History of Present Illness Initial Comments: 63-year-old female presents emergency department for chronic abdominal pain. States that since she had COVID 4 years ago she has had intermittent nausea, vomiting and abdominal pain. She has been to the emergency department previously for this. States that she has not followed up with her primary care in regards to her symptoms. She has had abdominal CTs. Denies EGD. Patient does not take any medications for her symptoms. States that she has not been able to eat or drink anything in a couple of days because of her symptoms. She denies changes in her urination. No vaginal bleeding or discharge. No changes in her bowel or bladder habits. No other alleviating, precipitating modifying factors - Related Data Home Medications Medication Instructions Recorded Confirmed Levothyroxine Sodium [Synthroid] 25 mcg PO DAILY 09/12/22 07/12/23 Albuterol Inhaler [Ventolin Hfa 1 - 2 puff INHALATION RT-Q6H PRN 07/12/23 07/12/23 Inhaler] Chlorthalidone [Hygroton] 25 mg PO DAILY 07/12/23 07/12/23 Indomethacin [Indocin] 50 mg PO BID PRN 07/13/23 07/13/23 hydrOXYzine HCL [Atarax] 50 mg PO HS PRN 07/13/23 07/13/23 Previous Rx's Medication Instructions Recorded Propranolol HCl [Propranolol HCl 80 mg PO DAILY #0 09/14/22 ER] amLODIPine [Norvasc] 2.5 mg PO DAILY #30 tablet 09/14/22 Pantoprazole [Protonix] 40 mg PO AC-BRKFST #30 tab 07/13/23 Famotidine [Pepcid] 20 mg PO BID #60 tablet 11/16/23 LORazepam [Ativan] 0.5 mg PO BID 3 Days #6 tab 11/16/23 Ondansetron Odt [Zofran Odt] 4 mg PO Q8HR PRN #30 tab 11/16/23 Allergies Allergy/AdvReac Type Severity Reaction Status Date / Time adhesive Allergy Rash/Hives Verified 11/16/23 12:44 sulfamethoxazole Allergy Rash/Hives Verified 11/16/23 12:44 [From Bactrim] trimethoprim [From Bactrim] Allergy Rash/Hives Verified 11/16/23 12:44 lisinopril AdvReac Cough Verified 11/16/23 12:44 Review of Systems ROS Statement: Those systems with pertinent positive or pertinent negative responses have been documented in the HPI. ROS Other: All systems not noted in ROS Statement are negative. Past Medical History Past Medical History: Asthma, Chest Pain / Angina, GERD/Reflux, Hypertension, Thyroid Disorder Additional Past Medical History / Comment(s): gout History of Any Multi-Drug Resistant Organisms: None Reported Past Surgical History: Appendectomy, Hysterectomy Additional Past Surgical History / Comment(s): removal of cyst on right ovary, Past Anesthesia/Blood Transfusion Reactions: No Reported Reaction Past Psychological History: No Psychological Hx Reported Smoking Status: Current every day smoker Past Alcohol Use History: Occasional Past Drug Use History: None Reported General Exam Limitations: no limitations General appearance: alert, in no apparent distress Head exam: Present: atraumatic, normocephalic, normal inspection Eye exam: Present: normal appearance, PERRL, EOMI. Absent: scleral icterus, conjunctival injection, periorbital swelling ENT exam: Present: normal exam, mucous membranes moist Neck exam: Present: normal inspection. Absent: tenderness, meningismus, lymphadenopathy Respiratory exam: Present: normal lung sounds bilaterally. Absent: respiratory distress, wheezes, rales, rhonchi, stridor Cardiovascular Exam: Present: regular rate, normal rhythm, normal heart sounds. Absent: systolic murmur, diastolic murmur, rubs, gallop, clicks GI/Abdominal exam: Present: soft, normal bowel sounds. Absent: distended, tenderness, guarding, rebound, rigid Extremities exam: Present: normal inspection, full ROM, normal capillary refill. Absent: tenderness, pedal edema, joint swelling, calf tenderness Back exam: Present: normal inspection Neurological exam: Present: alert, oriented X3, CN II-XII intact Psychiatric exam: Present: normal affect, normal mood Skin exam: Present: warm, dry, intact, normal color. Absent: rash Course Vital Signs 11/16/23 11/16/23 11/16/23 12:41 13:42 15:15 Temperature 97.9 F 98.3 F Pulse Rate 102 H 84 61 Respiratory 24 18 18 Rate Blood Pressure 188/124 180/112 187/98 O2 Sat by Pulse 100 100 100 Oximetry 11/16/23 16:09 Temperature Pulse Rate 80 Respiratory 18 Rate Blood Pressure 132/78 O2 Sat by Pulse 100 Oximetry Medical Decision Making - Medical Decision Making Was pt. sent in by a medical professional or institution (, PA, PLANE TENDER, urgent care, hospital, or correction...) When possible be specific @ -No Did you speak to anyone other than the patient for history (EMS, parent, family, police, friend...)? What history was obtained from this source @ -No Did you review nursing and triage notes (agree or disagree)? Why? @ -I reviewed and agree with nursing and triage notes Were old charts reviewed (outside hosp., previous admission, EMS record, old EKG, old radiological studies, urgent care reports/EKG's, correction records)? Report findings @ -I reviewed abdominal CTs that had been done previously in the emergency department because the patient's same complaint Differential Diagnosis (chest pain, altered mental status, abdominal pain women, abdominal pain men, vaginal bleeding, weakness, fever, dyspnea, syncope, headache, dizziness, GI bleed, back pain, seizure, CVA, palpatations, mental health, musculoskeletal)? @ -Differential Abdominal Pain Women: Appendicitis, Cholecystitis, diverticulosis, ischemic bowel, pancreatitis, hepatitis, UTI, gastroenteritis, AAA, incarcerated hernia, bowel obstruction, constipation, inflammatory bowel, hepatitis, peptic ulcer disease, splenic infarction, perforated viscus, vulvitis, ovarian torsion, PID, kidney stone, placenta abruption, this is not meant to be an all-inclusive list EKG interpreted by me (3pts min.). @ -Yes and demonstrates sinus rhythm with a rate of 89. KS interval 152. QRS 102. QTc of 422. No acute ST segment elevations or depressions X-rays interpreted by me (1pt min.). @ -None done CT interpreted by me (1pt min.). @ -None done U/S interpreted by me (1pt. min.). @ -None done What testing was considered but not performed or refused? (CT, X-rays, U/S, labs)? Why? @ -Ultrasound and CT were considered however patient has had previous imaging due to the same complaint What meds were considered but not given or refused? Why? @ -None Did you discuss the management of the patient with other professionals (professionals i.e. , PA, PLANE TENDER, lab, RT, psych nurse, social service manager, mission worker, teacher, correctional officer captain, pillowcase cutter)? Give summary @ -No Was smoking cessation discussed for >3mins.? @ -No Was critical care preformed (if so, how long)? @ -No Were there social determinants of health that impacted care today? How? (Homelessness, low income, unemployed, alcoholism, drug addiction, transportat ion, low edu. Level, literacy, decrease access to med. care, half-way, rehab)? @ -No Was there de-escalation of care discussed even if they declined (Discuss DNR or withdrawal of care, Hospice)? DNR status @ -No What co-morbidities impacted this encounter? (DM, HTN, Smoking, COPD, CAD, Cancer, CVA, ARF, Chemo, Hep., AIDS, mental health diagnosis, sleep apnea, morbid obesity)? @ -None Was patient admitted / discharged? Hospital course, mention meds given and route, prescriptions, significant lab abnormalities, going to OR and other pertinent info. @ -Upon arrival patient was seen and evaluated in [place] [address]. Thorough history and physical exam was performed. Laboratory studies are conducted. Patient does admit that this is a chronic symptom of her. I do feel that the patient requires an EGD. She will be started on Pepcid. She is to take this in conjunction with her omeprazole. Gave her several recommendations in regards to specialist who can perform an EGD. Patient agreeable and was discharged home in stable condition Undiagnosed new problem with uncertain prognosis? @ -Yes Drug Therapy requiring intensive monitoring for toxicity (Heparin, Nitro, Insulin, Cardizem)? @ -No Were any procedures done? @ -No Diagnosis/symptom? @ -Acute left upper quadrant abdominal pain, acute exacerbation of chronic nausea and vomiting Acute, or Chronic, or Acute on Chronic? @ -Acute Uncomplicated (without systemic symptoms) or Complicated (systemic symptoms)? @ -Complicated Side effects of treatment? @ -No Exacerbation, Progression, or Severe Exacerbation? @ -Yes Poses a threat to life or bodily function? How? (Chest pain, [place], [place], pneumonia, PE, COPD, DKA, ARF, appy, cholecystitis, CVA, Diverticulitis, Homicidal, Suicidal, threat to staff... and all critical care pts) @ -No - Lab Data Result diagrams: 11/16/23 13:52 11/16/23 13:52 Lab Results 11/16/23 11/16/23 11/16/23 Range/Units 13:52 13:52 13:52 WBC 3.6 L (3.8-10.6) k/uL RBC 4.07 (3.80-5.40) m/uL Hgb 13.2 (11.4-16.0) gm/dL Hct 39.6 (34.0-46.0) % MCV 97.5 (80.0-100.0) fL MCH 32.4 (25.0-35.0) pg MCHC 33.3 (31.0-37.0) g/dL RDW 13.4 (11.5-15.5) % Plt Count 223 (150-450) k/uL MPV 8.3 Neutrophils % 64 % Lymphocytes % 22 % Monocytes % 9 % Eosinophils % 2 % Basophils % 1 % Neutrophils # 2.3 (1.3-7.7) k/uL Lymphocytes # 0.8 L (1.0-4.8) k/uL Monocytes # 0.3 (0-1.0) k/uL Eosinophils # 0.1 (0-0.7) k/uL Basophils # 0.0 (0-0.2) k/uL Sodium 135 L (137-145) mmol/L Potassium 3.8 (3.5-5.1) mmol/L Chloride 100 (98-107) mmol/L Carbon Dioxide 20 L (22-30) mmol/L Anion Gap 15 mmol/L BUN 10 (7-17) mg/dL Creatinine 0.94 (0.52-1.04) mg/dL Est GFR (CKD-EPI)AfAm 74 (>60 ml/min/1.73 sqM) Est GFR (CKD-EPI)NonAf 64 (>60 ml/min/1.73 sqM) Glucose 141 H (74-99) mg/dL Lactic Ac Sepsis Rflx Plasma Lactic Acid Demarco 2.7 H* (0.7-2.0) mmol/L Calcium 10.1 (8.4-10.2) mg/dL Total Bilirubin 1.0 (0.2-1.3) mg/dL AST 40 H (14-36) U/L ALT 25 (4-34) U/L Alkaline Phosphatase 104 (38-126) U/L Total Protein 8.6 H (6.3-8.2) g/dL Albumin 4.7 (3.5-5.0) g/dL Lipase 81 (23-300) U/L TSH (0.465-4.680) mIU/L 11/16/23 11/16/23 Range/Units 13:52 14:15 WBC (3.8-10.6) k/uL RBC (3.80-5.40) m/uL Hgb (11.4-16.0) gm/dL Hct (34.0-46.0) % MCV (80.0-100.0) fL MCH (25.0-35.0) pg MCHC (31.0-37.0) g/dL RDW (11.5-15.5) % Plt Count (150-450) k/uL MPV Neutrophils % % Lymphocytes % % Monocytes % % Eosinophils % % Basophils % % Neutrophils # (1.3-7.7) k/uL Lymphocytes # (1.0-4.8) k/uL Monocytes # (0-1.0) k/uL Eosinophils # (0-0.7) k/uL Basophils # (0-0.2) k/uL Sodium (137-145) mmol/L Potassium (3.5-5.1) mmol/L Chloride (98-107) mmol/L Carbon Dioxide (22-30) mmol/L Anion Gap mmol/L BUN (7-17) mg/dL Creatinine (0.52-1.04) mg/dL Est GFR (CKD-EPI)AfAm (>60 ml/min/1.73 sqM) Est GFR (CKD-EPI)NonAf (>60 ml/min/1.73 sqM) Glucose (74-99) mg/dL Lactic Ac Sepsis Rflx Y Plasma Lactic Acid Demarco (0.7-2.0) mmol/L Calcium (8.4-10.2) mg/dL Total Bilirubin (0.2-1.3) mg/dL AST (14-36) U/L ALT (4-34) U/L Alkaline Phosphatase (38-126) U/L Total Protein (6.3-8.2) g/dL Albumin (3.5-5.0) g/dL Lipase (23-300) U/L TSH 2.610 (0.465-4.680) mIU/L Disposition Clinical Impression: Nausea and vomiting Disposition: HOME SELF-CARE Condition: Stable Instructions (If sedation given, give patient instructions): Acute Nausea and Vomiting (DC) Additional Instructions: Please take the Pepcid twice daily along with your omeprazole. Take the Zofran only as needed for nausea. Follow-up with the GI doctors/surgeon as I do feel that you need an EGD. Return for any new or worsening symptoms Prescriptions: LORazepam [Ativan] 0.5 mg PO BID 3 Days #6 tab Famotidine [Pepcid] 20 mg PO BID #60 tablet Ondansetron Odt [Zofran Odt] 4 mg PO Q8HR PRN #30 tab PRN Reason: Nausea Is patient prescribed a controlled substance at d/c from ED?: No Referrals: Teddy Gore DO [Primary Care Provider] - 1-2 days Cash Arreaga DO [REFERRING] - 1-2 days Ally Schaffer MD [STAFF PHYSICIAN] - 1-2 days Ryan George MD [STAFF PHYSICIAN] - 1-2 days Freeman Tolbert MD [Medical Doctor] - 1-2 days Spring Mistry MD [STAFF PHYSICIAN] - 1-2 days Time of Disposition: 15:16
[2023-11-16] MEDS: LORazepam 2 MG/ML INJ IV STA (15:51)
[2023-11-16 15:53] VITALS: TEMP 98.3
[2023-11-16 16:35] VITALS: BP 132/78; PULSE 80
== END 2023-11-16 16:09 | disposition home or self-care (01) ==
LOC: EC 12:38
DX: R10.12 Left upper quadrant pain (principal); R11.2 Nausea with vomiting, unspecified; F17.200 Nicotine dependence, unspecified, uncomplicated; Z88.1 Allergy status to other antibiotic agents; Z88.2 Allergy status to sulfonamides; Z88.8 Allergy status to other drugs, medicaments and biological substances; Z91.09 Other allergy status, other than to drugs and biological substances; Z86.16 Personal history of COVID-19
CPT/HCPCS: 36415; 93005; 80053; 84443; 83605; 83690; 85025; 99284; 96374; 96375; 96361; J2060; J2405

== ENCOUNTER → 2024-03-08 | Emergency (ER) | payer MEDICARE, OTHER ==
[~2024-03-08] MED LIST: LABETALOL SYRINGE 5 MG/ML (4 ML SYR) ONE; LORazepam 2 MG/ML INJ ONE; MORPHINE SULFATE 4 MG/ML SYRINGE ONE; SODIUM CHLORIDE 0.9% 1,000 ML BAG ONE
--- NOTE | 2024-04-04 16:32 | CT ---
EXAMINATION TYPE: CODE STROKE: CTA head neck DATE OF EXAM: 03/08/2024 HISTORY: Acute mental status changes COMPARISON: None on downtime PACS CT DLP: 449.8 mGycm. Automated Exposure Control for Dose Reduction was Utilized. TECHNIQUE: CTA scan of the neck is performed with IV Contrast, patient injected with 65 mL of Isovue 370, axial images are obtained, coronal and sagittal reformatted images are reviewed. Three-D recons tructed images are created on an independent workstation and reviewed. Source images are reviewed. FINDINGS: Carotid/Vascular Structures: There is a 3 vessel arch. Common carotid arteries bifurcate into internal and external carotid arteries without significant carlos w limiting stenosis. There is less than 30% narrowing of the right internal carotid artery. No signif icant narrowing of the left internal carotid artery is evident. Left vertebral artery is dominant.. Internal carotid arteries and vertebral arteries are patent to the skull base. Cervical of Ewing: The right vertebral artery may terminate within the posterior inferior cerebellar artery. Left vertebral artery stents to the basilar artery. Posterior cerebral vasculature is unremarkable. Internal carotid arteries bifurcate normally into A1 and M1 segments. A2 segments are normal. The anterior communicating artery is not identified. The right posterior communicating artery is not identified. The left posterior communicating artery is not identified. IMPRESSION: 1. No flow-limiting stenosis bilateral carotid bifurcations. 2. Normal Jackson of Ewing NASCET criteria was used in interpretation of this exam?
--- NOTE | 2024-04-04 16:32 | CT ---
EXAMINATION TYPE: CT brain wo con DATE OF EXAM: 03/08/2024 COMPARISON: None on downtime PACS INDICATION: Dizziness acute mental status changes DLP: 1099.6 mGycm, Automated exposure control for dose reduction was used. CONTRAST: None CT of the brain is performed utilizing 3 mm thick sections through the posterior fossa and 3 mm thick sections through the remaining calvarium. Study is performed within 24 hours of arrival to the hosp ital. No abnormal hyperdensity is present to suggest an acute intracranial hemorrhage. No mass lesion is evident. No acute infarcts are evident. Ventricles and sulci are appropriate for the patient age. Paranasal sinuses and mastoid air cells within the [id number] are clear. IMPRESSION: 1. No acute intracranial process. Follow-up MRI can be performed as clinically indicated.
== END ==
LOC: EC 15:24
CPT/HCPCS: 70450; 70496; 70498; 93005; 96374; 96375; 99285

== ENCOUNTER 2024-03-09 01:16 | Emergency (ER) | payer MEDICARE, OTHER ==
[2024-03-09] MEDS ORDERED: hydrALAZINE HCL 20 MG/ML 1 ML VIAL ONE (02:17)
[2024-03-09] MEDS ORDERED: ACETAMINOPHEN TAB 325 MG TAB ONE (03:06)
== END 2024-03-09 05:00 | disposition home or self-care (01) ==
LOC: EC 01:16
CPT/HCPCS: 93005; 99283

== ENCOUNTER 2024-03-10 05:05 | Emergency (ER) | payer MEDICARE, OTHER | END 2024-03-10 06:25 | disposition home or self-care (01) | LOC: EC 05:05 | DX: I10 Essential (primary) hypertension (principal) | CPT/HCPCS: 99283 ==

== ENCOUNTER 2024-03-21 11:46 | Inpatient (IN) | payer MEDICARE, OTHER ==
[2024-03-21 12:02] LABS: Glucose,Whole Blood 119 mg/dL (70-110)
--- NOTE | 2024-03-21 12:12 | ED ---
General Adult HPI - General Chief complaint: Neuro Symptoms/Deficit Stated complaint: Numbess Arm/Hand Time Seen by Provider: 03/21/24 11:57 Source: patient, family Mode of arrival: wheelchair Limitations: no limitations - History of Present Illness Initial comments: Dictation was produced using [employer] dictation software. please excuse any grammatical, word or spelling errors. Chief Complaint: 63-year-old female with 30 minutes of altered mental status History of Present Illness: Patient is a 63-year-old female she has frequented our emergency department multiple occasions over the last several weeks. She was apparently at her primary care doctor's office when she began experiencing shortness of breath altered mental status. Son who provides history present illness states that patient is significantly altered. Patient apparently does not have any significant history of cerebrovascular accident. Patient is a poor historian at this time due to altered mentation. Son is concerned about patient's neurologic addition. Patient denies any pain. The ROS documented in this emergency department record has been reviewed and confirmed by me. Those systems with pertinent positive or negative responses have been documented in the HPI. All other systems are other negative and/or noncontributory. - Related Data Home Medications Medication Instructions Recorded Confirmed Levothyroxine Sodium [Synthroid] 25 mcg PO DAILY 09/12/22 03/21/24 Albuterol Inhaler [Ventolin Hfa 1 - 2 puff INHALATION RT-Q6H PRN 07/12/23 03/21/24 Inhaler] hydrOXYzine HCL [Atarax] 50 mg PO HS PRN 07/13/23 03/21/24 Ergocalciferol (Vitamin D2) 1,250 mcg PO Q7D 03/21/24 03/21/24 [Drisdol (50,000 Iu)] Sertraline [Zoloft] 50 mg PO HS 03/21/24 03/21/24 Previous Rx's Medication Instructions Recorded Propranolol HCl [Propranolol HCl 80 mg PO DAILY #0 09/14/22 ER] Famotidine [Pepcid] 20 mg PO BID #60 tablet 11/16/23 Ondansetron Odt [Zofran Odt] 4 mg PO Q8HR PRN #30 tab 11/16/23 Allergies Allergy/AdvReac Type Severity Reaction Status Date / Time adhesive Allergy Rash/Hives, Verified 03/21/24 13:20 peels skin sulfamethoxazole Allergy Rash/Hives, Verified 03/21/24 13:20 [From Bactrim] Nausea/vomiting trimethoprim [From Bactrim] Allergy Rash/Hives Verified 03/21/24 13:20 lisinopril AdvReac Cough Verified 03/21/24 13:20 Review of Systems ROS Statement: Those systems with pertinent positive or pertinent negative responses have been documented in the HPI. ROS Other: All systems not noted in ROS Statement are negative. Past Medical History Past Medical History: Asthma, Chest Pain / Angina, GERD/Reflux, Hypertension, Thyroid Disorder Additional Past Medical History / Comment(s): gout History of Any Multi-Drug Resistant Organisms: None Reported Past Surgical History: Appendectomy, Hysterectomy Additional Past Surgical History / Comment(s): removal of cyst on right ovary, Past Anesthesia/Blood Transfusion Reactions: No Reported Reaction Past Psychological History: No Psychological Hx Reported Smoking Status: Current every day smoker Past Alcohol Use History: Occasional Past Drug Use History: None Reported General Exam - General Exam Comments Initial Comments: PHYSICAL EXAM: General Impression: Alert to person, flat affect HEENT: Normocephalic atraumatic, extra-ocular movements intact, pupils equal and reactive to light bilaterally, mucous membranes moist. Cardiovascular: Heart regular rate and rhythm Chest: Able to complete full sentences, no retractions, no tachypnea Abdomen: abdomen soft, non-tender, non-distended, no organomegaly Musculoskeletal: Pulses present and equal in all extremities, no peripheral edema Motor: no focal deficits noted Neurological: Right-sided facial droop, 0 out of 5 weakness of the lower extremities, slow speech Skin: Intact with no visualized rashes Psych: Normal affect and mood Limitations: no limitations Course Vital Signs 03/21/24 03/21/24 11:49 12:26 Temperature 98 F Pulse Rate 78 68 Respiratory 20 24 Rate Blood Pressure 184/103 183/99 O2 Sat by Pulse 100 96 Oximetry - Reevaluation(s) Reevaluation #1: 03/21/24 12:08 Due to patient's symptoms and acuity of symptoms code stroke paged. Patient has low NIH score of 23. Not a candidate for alteplase. Case discussed with Dr. Nicholas state patient will need medical management. EKG Findings - EKG Comments: EKG Findings:: My EKG interpretation: Ventricular rate 64, sinus rhythm,. 167, QRS 93, QTc 430. No NM prolongation, no QTC prolongation, no ST or T-wave changes noted. Overall, this EKG is unremarkable Medical Decision Making - Medical Decision Making Was pt. sent in by a medical professional or institution (, PA, PCTS, urgent care, hospital, or senior care...) When possible be specific @ -No Did you speak to anyone other than the patient for history (EMS, parent, family, police, friend...)? What history was obtained from this source @ -Some history obtained from son states that patient has been dealing with chronic nausea Did you review nursing and triage notes (agree or disagree)? Why? @ -I reviewed and agree with nursing and triage notes Were old charts reviewed (outside hosp., previous admission, EMS record, old EKG, old radiological studies, urgent care reports/EKG's, senior care records)? Report findings @ -No old charts were reviewed Differential Diagnosis (chest pain, altered mental status, abdominal pain women, abdominal pain men, vaginal bleeding, musculoskeletal, weakness, fever, dyspnea, syncope, headache, dizziness, GI bleed, back pain, seizure, CVA, palpatations, mental health)? @ - Differential CVA: Ischemic stroke, hemorrhagic stroke, brain tumor, atypical migraine, Wernicke's encephalopathy, seizure, multiple sclerosis, meningitis, encephalitis, hypoglycemia, Guillain-Finn, electrolytes disturbance, myasthenia gravis.... This is not meant to be an all-inclusive list EKG interpreted by me (3pts min.). @ -See above X-rays interpreted by me (1pt min.). @ -Chest x-ray shows no acute processes CT interpreted by me (1pt min.). @ -CT brain CT angiography shows no acute processes U/S interpreted by me (1pt. min.). @ -None done What testing was considered but not performed or refused? (CT, X-rays, U/S, labs)? Why? @ -None What meds were considered but not given or refused? Why? @ -Alteplase considered however patient risk outweigh the benefits Was smoking cessation discussed for >3mins.? @ -No Were there social determinants of health that impacted care today? How? (Homelessness, low income, unemployed, alcoholism, drug addiction, transportatio n, low edu. Level, literacy, decrease access to med. care, snf, rehab)? @ -No Was there de-escalation of care discussed even if they declined (Discuss DNR or withdrawal of care, Hospice)? DNR status @ -No What co-morbidities impacted this encounter? (DM, HTN, Smoking, COPD, CAD, Cancer, CVA, ARF, Chemo, Hep., AIDS, mental health diagnosis, sleep apnea, morbid obesity)? @ -None Was patient admitted / discharged? Hospital course, mention meds given and route, prescriptions, significant lab abnormalities, going to OR and other pertinent info. @ -63-year-old female presents to the emergency department with vague strokelike symptoms not entirely focal however she did appear to be aphasic with extremity weakness. Vital signs upon arrival are within acceptable limits. Code stroke paged. Patient had a candidate for alteplase or thrombectomy per stroke neurologist. Imaging studies are negative. Metabolic panel obtained found to be within acceptable limits. Slightly hyponatremic 126. Patient IV fluids will be admitted consultation to neurologist. Patient given aspirin. Did you discuss the management of the patient with other professionals (professionals i.e. , PA, PCTS, lab, RT, psych nurse, social service agency director, environmental law professor, teacher, booking police officer, case finisher)? Give summary @ -Discussed with neurologist along with hospitalist for admission Was critical care preformed (if so, how long)? @ -Yes, 33 minutes Undiagnosed new problem with uncertain prognosis? @ -No Drug Therapy requiring intensive monitoring for toxicity (Heparin, Nitro, Insulin, Cardizem)? @ -No Were any procedures done? @ -No Diagnosis/symptom? Acute, or Chronic, or Acute on Chronic? Uncomplicated (without systemic symptoms) or Complicated (systemic symptoms)? @ -Strokelike symptoms Side effects of treatment? @ -No Exacerbation, Progression, or Severe Exacerbation? @ -No Poses a threat to life or bodily function? How? (Chest pain, [place], [place], pneumonia, PE, COPD, DKA, ARF, appy, cholecystitis, CVA, Diverticulitis, Homicidal, Suicidal, threat to staff... and all critical care pts) @ -yes - Lab Data Result diagrams: 03/21/24 12:05 03/21/24 12:05 Lab Results 03/21/24 03/21/2424 Range/Units 12:00 12:05 12:05 WBC 4.0 (3.8-10.6) k/uL RBC 3.76 L (3.80-5.40) m/uL Hgb 12.5 (11.4-16.0) gm/dL Hct 36.5 (34.0-46.0) % MCV 97.0 (80.0-100.0) fL MCH 33.1 (25.0-35.0) pg MCHC 34.1 (31.0-37.0) g/dL RDW 12.9 (11.5-15.5) % Plt Count 260 (150-450) k/uL MPV 6.9 Neutrophils % 59 % Lymphocytes % 25 % Monocytes % 8 % Eosinophils % 5 % Basophils % 1 % Neutrophils # 2.4 (1.3-7.7) k/uL Lymphocytes # 1.0 (1.0-4.8) k/uL Monocytes # 0.3 (0-1.0) k/uL Eosinophils # 0.2 (0-0.7) k/uL Basophils # 0.0 (0-0.2) k/uL PT 10.2 (10.0-12.5) sec INR 0.9 (<1.2) APTT 24.6 (22.0-30.0) sec Sodium (137-145) mmol/L Potassium (3.5-5.1) mmol/L Chloride (98-107) mmol/L Carbon Dioxide (22-30) mmol/L Anion Gap mmol/L BUN (7-17) mg/dL Creatinine (0.52-1.04) mg/dL Est GFR (CKD-EPI)AfAm (>60 ml/min/1.73 sqM) Est GFR (CKD-EPI)NonAf (>60 ml/min/1.73 sqM) Glucose (74-99) mg/dL POC Glucose (mg/dL) 119 H (70-110) mg/dL POC Glu Weight Analyst ID Yin Jones Calcium (8.4-10.2) mg/dL Total Bilirubin (0.2-1.3) mg/dL AST (14-36) U/L ALT (4-34) U/L Alkaline Phosphatase (38-126) U/L Creatine Kinase (30-135) U/L Troponin I (0.000-0.034) ng/mL Total Protein (6.3-8.2) g/dL Albumin (3.5-5.0) g/dL 03/21/24 03/21/24 Range/Units 12:05 12:05 WBC (3.8-10.6) k/uL RBC (3.80-5.40) m/uL Hgb (11.4-16.0) gm/dL Hct (34.0-46.0) % MCV (80.0-100.0) fL MCH (25.0-35.0) pg MCHC (31.0-37.0) g/dL RDW (11.5-15.5) % Plt Count (150-450) k/uL MPV Neutrophils % % Lymphocytes % % Monocytes % % Eosinophils % % Basophils % % Neutrophils # (1.3-7.7) k/uL Lymphocytes # (1.0-4.8) k/uL Monocytes # (0-1.0) k/uL Eosinophils # (0-0.7) k/uL Basophils # (0-0.2) k/uL PT (10.0-12.5) sec INR (<1.2) APTT (22.0-30.0) sec Sodium 126 L (137-145) mmol/L Potassium 4.8 (3.5-5.1) mmol/L Chloride 91 L (98-107) mmol/L Carbon Dioxide 22 (22-30) mmol/L Anion Gap 13 mmol/L BUN 15 (7-17) mg/dL Creatinine 0.86 (0.52-1.04) mg/dL Est GFR (CKD-EPI)AfAm 83 (>60 ml/min/1.73 sqM) Est GFR (CKD-EPI)NonAf 72 (>60 ml/min/1.73 sqM) Glucose 103 H (74-99) mg/dL POC Glucose (mg/dL) (70-110) mg/dL POC Glu Weight Analyst ID Calcium 9.9 (8.4-10.2) mg/dL Total Bilirubin 0.9 (0.2-1.3) mg/dL AST 35 (14-36) U/L ALT 17 (4-34) U/L Alkaline Phosphatase 116 (38-126) U/L Creatine Kinase 95 (30-135) U/L Troponin I <0.012 (0.000-0.034) ng/mL Total Protein 8.3 H (6.3-8.2) g/dL Albumin 4.9 (3.5-5.0) g/dL Disposition Clinical Impression: Stroke-like symptoms Disposition: ADMITTED IP TO THIS [facility] Condition: Fair Referrals: Teddy Gore DO [Primary Care Provider] - 1-2 days Decision Time: 14:12
--- NOTE | 2024-03-21 12:17 | CT ---
EXAMINATION TYPE: CT brain wo con DATE OF EXAM: 03/21/2024 COMPARISON: None HISTORY: None CT DLP: 1164.4 mGycm Automated exposure control for dose reduction was used. FINDINGS: Ventricular system is midline. No acute intracranial hemorrhage or mass effect. Mild degenerative andressa nge is a slightly greater frontal lobe component. Calvarium intact. Orbits symmetric. Craniocervical junction maintained. Moderate intracranial atheros clerotic disease involving cavernous segment bilateral ICA. IMPRESSION: NO ACUTE INTRACRANIAL HEMORRHAGE OR MASS EFFECT. IF CONCERN FOR ACUTE ISCHEMIA CONSIDER FOLLOW-UP MRI .
[2024-03-21 12:21] LABS: Basophils % (A) 1 %; Eosinophils # (A) 0.2 k/uL (0-0.7); Eosinophils % (A) 5 %; HCT 36.5 % (34.0-46.0); HGB 12.5 gm/dL (11.4-16.0); Lymphocytes % (A) 25 %; MCH 33.1 pg (25.0-35.0); MCHC 34.1 g/dL (31.0-37.0); Mean Platelet Volume 6.9; Monocytes # (A) 0.3 k/uL (0-1.0); Monocytes % (A) 8 %; Neutrophils # (A) 2.4 k/uL (1.3-7.7); Neutrophils % (A) 59 %; Platelet Count 260 k/uL (150-450); RBC 3.76 m/uL (3.80-5.40); RDW 12.9 % (11.5-15.5)
[2024-03-21] MEDS: ONDANSETRON 4 MG/2 ML VIAL IVP STA (12:24)
[2024-03-21 12:35] LABS: ALT 17 U/L (4-34); African American GFR (CKD) 83 (>60 ml/min/1.73 sqM); Albumin 4.9 g/dL (3.5-5.0); Anion Gap 13 mmol/L; Blood Urea Nitrogen 15 mg/dL (7-17); Calcium 9.9 mg/dL (8.4-10.2); Carbon Dioxide 22 mmol/L (22-30); Chloride 91 mmol/L (98-107); Creatine Kinase 95 U/L (30-135); Glucose 103 mg/dL (74-99); Non-African American GFR(CKD) 72 (>60 ml/min/1.73 sqM); Sodium 126 mmol/L (137-145); Total Bilirubin 0.9 mg/dL (0.2-1.3); Total Protein 8.3 g/dL (6.3-8.2)
--- NOTE | 2024-03-21 12:36 | CT ---
EXAMINATION TYPE: CT angio head neck DATE OF EXAM: 03/21/2024 HISTORY: Mental status change COMPARISON: None CT DLP: 1172.6 mGycm. Automated Exposure Control for Dose Reduction was Utilized. TECHNIQUE: CTA scan of the head and neck is performed with IV Contrast, patient injected with 65 mL of Isovue 370, axial images are obtained, coronal and sagittal reformatted images are reviewed. 3D re constructed images are created on an independent workstation and reviewed. FINDINGS: Carotid/Vascular Structures: Mild right and moderate left carotid bifurcation atherosclerotic disease . 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 Dominant left vertebral artery is diminutive right vertebral artery. Vertebral basilar system patent as noted above there is a diminutive right vertebral artery. Visualiz ed portions of the posterior cerebral arteries enhance normally. Anterior cerebral arteries appear patent. Visualized proximal bilateral middle cerebral artery in the distributions appear to enhance. Could not exclude a 2 mm right MCA bifurcation aneurysm. Multilevel hypertrophic and degenerative changes of the spine. IMPRESSION: 1. Mild right and moderate left carotid bifurcation atherosclerotic disease. 2. No sizable\proximal intracranial vascular occlusion. Correlate with MRI as clinically warranted. 3. Cannot exclude a 2 mm right MCA bifurcation tiny aneurysm. NASCET criteria was used in interpretation of this exam?
[2024-03-21 12:37] LABS: AST 35 U/L (14-36); Alkaline Phosphatase 116 U/L (38-126); Potassium 4.8 mmol/L (3.5-5.1)
[2024-03-21 12:40] LABS: INR 0.9 (<1.2); Partial Thromboplastin Time 24.6 sec (22.0-30.0); Prothrombin Time 10.2 sec (10.0-12.5)
--- NOTE | 2024-03-21 12:46 | XR ---
EXAMINATION TYPE: XR chest 2V DATE OF EXAM: 03/21/2024 COMPARISON: NONE TECHNIQUE: PA and lateral views submitted. HISTORY: None FINDINGS: The lungs are clear and there is no pneumothorax, pleural effusion, or focal pneumonia. Heart size normal and no overt failure. Osseous structures demonstrate hypertrophic and degenerative changes of the spine. AC joint arthropathy. IMPRESSION: 1. No acute process.
[2024-03-21] MEDS: ASPIRIN 81 MG PO STA (14:17)
[2024-03-21] MEDS: SODIUM CHLORIDE 0.9% 1,000 ML IV SCH (14:18)
[2024-03-21] MEDS ORDERED: ALBUTEROL HFA INHALER INHALATION PRN ×2 (20:14→20:38)
[2024-03-21] MEDS: FAMOTIDINE 20 MG TAB PO SCH (20:37)
[2024-03-21] MEDS: LEVOTHYROXINE 25 MCG TAB PO SCH (20:37)
[2024-03-21] MEDS: PREGABALIN 50 MG CAP PO SCH (20:37)
[2024-03-21] MEDS: PROPRANOLOL LA 80 MG CAP.SA.24H PO SCH (21:47)
[2024-03-21] MEDS: hydrOXYzine pamoate 25 MG CAP PO PRN (22:17)
[2024-03-21] MEDS: ONDANSETRON ODT 4 MG TAB PO PRN (22:18)
[2024-03-21] MEDS: HYDROcodone/APAP 5-325MG 1 EACH TAB PO PRN (23:01)
[2024-03-22] MEDS: SERTRALINE 50 MG TAB PO SCH (08:55)
[2024-03-22] MEDS: ASPIRIN 325 MG TAB PO SCH (08:55)
[2024-03-22 11:06] LABS: ALT 16 U/L (4-34); AST 29 U/L (14-36); African American GFR (CKD) 39 (>60 ml/min/1.73 sqM); Albumin 4.2 g/dL (3.5-5.0); Alkaline Phosphatase 107 U/L (38-126); Anion Gap 7 mmol/L; Blood Urea Nitrogen 27 mg/dL (7-17); Calcium 9.5 mg/dL (8.4-10.2); Carbon Dioxide 31 mmol/L (22-30); Chloride 91 mmol/L (98-107); Glucose 110 mg/dL (74-99); Non-African American GFR(CKD) 34 (>60 ml/min/1.73 sqM); Potassium 4.9 mmol/L (3.5-5.1); Sodium 129 mmol/L (137-145); Total Bilirubin 0.8 mg/dL (0.2-1.3); Total Protein 7.3 g/dL (6.3-8.2)
[2024-03-22] MEDS ORDERED: LORazepam 2 MG/ML INJ IV PRN (13:10)
--- NOTE | 2024-03-22 13:11 | P.HPIM ---
History of Present Illness H&P Date: 03/22/24 History of present illness; patient 63-year-old lady with past medical significant for hypothyroidism who presented the ER for altered mental status and strokelike symptoms. Patient was sent in from her PCPs office where she was found to be short of breath and confused. Patient also having difficulty in speaking and weakness of extremities. Patient was immediately sent to the ER. There was no noticeable jerking movement of any extremity. No loss of consciousness. There was no complaint of chest pain. Patient was a poor historian. Stroke code was called in the ER. Initial lab work done in the ER showed WBC 4, hemoglobin 12.5, platelet count 260, sodium 126, potassium 4.8, BUN 15, creatinine 0.86, glucose 103, calcium 9.9, troponin 0.012 EKG done in the ER showed heart rate of 64, no ST segment elevation or depression seen, no T-wave inversions seen. Chest x-ray done in the ER showed no acute process CT head done showed no acute intracranial process CTA head and neck done showed mild right and moderate left carotid bifurcation atherosclerotic disease. ER physician discussed with on-call neurologist, patient was not a tPA candidate as patient symptoms were improving. Patient admitted to internal medicine service REVIEW OF SYSTEMS: CONSTITUTIONAL: No fever, no malaise, no fatigue. HEENT: No recent visual problems or hearing problems. Denied any sore throat. CARDIOVASCULAR: No chest pain, orthopnea, PND, no palpitations, no syncope. PULMONARY: No shortness of breath, no cough, no hemoptysis. GASTROINTESTINAL: No diarrhea, no nausea, no vomiting, no abdominal pain. NEUROLOGICAL: No headaches, no weakness, no numbness. HEMATOLOGICAL: Denies any bleeding or petechiae. GENITOURINARY: Denies any burning micturition, frequency, or urgency. MUSCULOSKELETAL/RHEUMATOLOGICAL: Denies any joint pain, swelling, or any muscle pain. ENDOCRINE: Denies any polyuria or polydipsia. The rest of the 14-point review of systems is negative. PHYSICAL EXAMINATION: GENERAL: The patient is alert and oriented x3, not in any acute distress. Well developed, well nourished. HEENT: Pupils are round and equally reacting to light. EOMI. No scleral icterus. No conjunctival pallor. Normocephalic, atraumatic. No pharyngeal erythema. No thyromegaly. CARDIOVASCULAR: S1 and S2 present. No murmurs, rubs, or gallops. PULMONARY: Chest is clear to auscultation, no wheezing or crackles. ABDOMEN: Soft, nontender, nondistended, normoactive bowel sounds. No palpable organomegaly. MUSCULOSKELETAL: No joint swelling or deformity. EXTREMITIES: No cyanosis, clubbing, or pedal edema. NEUROLOGICAL: Moving all extremities, cranial 2 to 12 intact SKIN: No rashes. Assessment and plan Strokelike symptoms Hyponatremia Hypothyroidism Hypertension Monitor vital signs Monitor CBC Monitor CMP Continue telemetry monitoring Ordered neurochecks Ordered lipid panel Ordered HbA1c level Ordered 2D echo Resume home meds Consult neurology Labs and medication were reviewed.. Continue same treatment. Continue with symptomatic treatment. Resume home medication. Monitor labs and vitals. DVT and GI prophylaxis. Further recommendations as per clinical course of the patient Dictation was produced using [employer] dictation software. please excuse any grammatical, word or spelling errors. Past Medical History Past Medical History: Asthma, Chest Pain / Angina, GERD/Reflux, Hypertension, Thyroid Disorder Additional Past Medical History / Comment(s): gout History of Any Multi-Drug Resistant Organisms: None Reported Past Surgical History: Appendectomy, Hysterectomy Additional Past Surgical History / Comment(s): removal of cyst on right ovary, Past Anesthesia/Blood Transfusion Reactions: No Reported Reaction Past Psychological History: No Psychological Hx Reported Smoking Status: Current every day smoker Past Alcohol Use History: Occasional Past Drug Use History: None Reported Medications and Allergies Home Medications Medication Instructions Recorded Confirmed Type Levothyroxine Sodium [Synthroid] 25 mcg PO DAILY 09/12/22 03/21/24 History Propranolol HCl [Propranolol HCl 80 mg PO DAILY #0 09/14/22 03/21/24 Rx ER] Albuterol Inhaler [Ventolin Hfa 1 - 2 puff INHALATION RT-Q6H PRN 07/12/23 03/21/24 History Inhaler] hydrOXYzine HCL [Atarax] 50 mg PO HS PRN 07/13/23 03/21/24 History Famotidine [Pepcid] 20 mg PO BID #60 tablet 11/16/23 03/21/24 Rx Ondansetron Odt [Zofran Odt] 4 mg PO Q8HR PRN #30 tab 11/16/23 03/21/24 Rx Ergocalciferol (Vitamin D2) 1,250 mcg PO Q7D 03/21/24 03/21/24 History [Drisdol (50,000 Iu)] Sertraline [Zoloft] 50 mg PO HS 03/21/24 03/21/24 History Allergies Allergy/AdvReac Type Severity Reaction Status Date / Time adhesive Allergy Rash/Hives, Verified 03/21/24 13:20 peels skin sulfamethoxazole Allergy Rash/Hives, Verified 03/21/24 13:20 [From Bactrim] Nausea/vomiting trimethoprim [From Bactrim] Allergy Rash/Hives Verified 03/21/24 13:20 lisinopril AdvReac Cough Verified 03/21/24 13:20 Physical Exam Vitals: Vital Signs Temp Pulse Pulse Pulse Resp BP BP 03/22/24 08:00 98.0 F 62 16 114/72 03/22/24 04:55 98.1 F 67 16 120/55 03/22/24 02:00 66 16 03/21/24 23:00 98.1 F 66 16 137/82 03/21/24 20:00 16 03/21/24 19:28 98.5 F 87 16 129/85 03/21/24 16:52 98.3 F 73 18 160/89 03/21/24 16:02 70 18 167/99 03/21/24 16:00 98.2 F 70 18 133/86 03/21/24 15:02 66 18 03/21/24 14:02 82 20 145/96 03/21/24 12:26 68 24 183/99 03/21/24 11:49 98 F 78 20 184/103 Pulse Ox 03/22/24 08:00 99 03/22/24 04:55 99 03/22/24 02:00 03/21/24 23:00 100 03/21/24 20:00 03/21/24 19:28 99 03/21/24 16:52 100 03/21/24 16:02 100 03/21/24 16:00 100 03/21/24 15:02 99 03/21/24 14:02 96 03/21/24 12:26 96 03/21/24 11:49 100 Intake and Output 03/21/24 03/22/24 03/22/24 22:59 06:59 14:59 Intake Total 10 Balance 10 Intake: IV 10 0.9 10 Other: Voiding Method Toilet Toilet # Voids 1 2 Weight 74.843 kg 73.1 kg Results CBC & Chem 7: 03/21/24 12:05 03/21/24 12:05 Labs: Abnormal Lab Results - Last 24 Hours (Table) 03/21/24 03/21/24 03/21/24 Range/Units 12:00 12:05 12:05 RBC 3.76 L (3.80-5.40) m/uL Sodium 126 L (137-145) mmol/L Chloride 91 L (98-107) mmol/L Glucose 103 H (74-99) mg/dL POC Glucose (mg/dL) 119 H (70-110) mg/dL Total Protein 8.3 H (6.3-8.2) g/dL Thrombosis Risk Factor Assmnt - Choose All That Apply Each Risk Factor Represents 2 Points: Age 61-74 years Thrombosis Risk Factor Assessment Total Risk Factor Score: 2 Thrombosis Risk Factor Assessment Level: Low Risk
--- NOTE | 2024-03-22 15:01 | P.CNNES ---
History of Present Illness Consult date: 03/22/24 Requesting physician: Harinder Blake Reason for Consult: code stroke History of Present Illness: This is a 63-year-old woman presented emergency department because of mental status and shortness of breath. Some of the history is obtained from medical record. It seems that the patient was seen at her primary care doctor's office when she began experience shortness of breath and altered mental status and the son felt patient significantly altered. Patient does not seem to be reliable history but she stated that she felt bad recently and she felt her bilateral arms were numb and she thought she is about to pass out but she did not pass out. She also had pain over the right ankle and her arch region right more than left with back pain but she states that is chronic. Because she thought she is can a pass out she called her son according to the patient and she was unsure if this was A-fib. Denies any history of stroke, seizure. Denies any tongue bite, urinary incontinence or bowel incontinence. She feels she is doing better now. 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 Denies any focal weakness or numbness currently. Denies any headache. Some of the workup during this hospital visit consisted of: TSH is 3.66, ammonia is less than 9 Sodium on presentation is 126 Creatinine is 1.58 Reviewed the rest of the lab workup CT of the head is reported as no acute intracranial hemorrhage or mass effect. I reviewed the CT and agree with the report CTA head and neck: Mild right and moderate left carotid bifurcation atherosclerotic disease. No sizable/proximal intracranial vascular occlusion. Cannot exclude a 2 mm right MCA bifurcation tiny aneurysm. Review of Systems The positive and negative as per HPI. Past Medical History Past Medical History: Asthma, Chest Pain / Angina, GERD/Reflux, Hypertension, Thyroid Disorder Additional Past Medical History / Comment(s): gout History of Any Multi-Drug Resistant Organisms: None Reported Past Surgical History: Appendectomy, Hysterectomy Additional Past Surgical History / Comment(s): removal of cyst on right ovary, Past Anesthesia/Blood Transfusion Reactions: No Reported Reaction Past Psychological History: No Psychological Hx Reported Smoking Status: Current every day smoker Past Alcohol Use History: Occasional Past Drug Use History: None Reported Medications and Allergies Home Medications Medication Instructions Recorded Confirmed Type Levothyroxine Sodium [Synthroid] 25 mcg PO DAILY 09/12/22 03/21/24 History Propranolol HCl [Propranolol HCl 80 mg PO DAILY #0 09/14/22 03/21/24 Rx ER] Albuterol Inhaler [Ventolin Hfa 1 - 2 puff INHALATION RT-Q6H PRN 07/12/23 03/21/24 History Inhaler] hydrOXYzine HCL [Atarax] 50 mg PO HS PRN 07/13/23 03/21/24 History Famotidine [Pepcid] 20 mg PO BID #60 tablet 11/16/23 03/21/24 Rx Ondansetron Odt [Zofran Odt] 4 mg PO Q8HR PRN #30 tab 11/16/23 03/21/24 Rx Ergocalciferol (Vitamin D2) 1,250 mcg PO Q7D 03/21/24 03/21/24 History [Drisdol (50,000 Iu)] Sertraline [Zoloft] 50 mg PO HS 03/21/24 03/21/24 History Allergies Allergy/AdvReac Type Severity Reaction Status Date / Time adhesive Allergy Rash/Hives, Verified 03/21/24 13:20 peels skin sulfamethoxazole Allergy Rash/Hives, Verified 03/21/24 13:20 [From Bactrim] Nausea/vomiting trimethoprim [From Bactrim] Allergy Rash/Hives Verified 03/21/24 13:20 lisinopril AdvReac Cough Verified 03/21/24 13:20 Physical Examination - Vital Signs Vital Signs: Vital Signs Temp Pulse Pulse Pulse Resp BP BP 03/22/24 12:00 58 L 16 133/87 03/22/24 08:00 98.0 F 62 16 114/72 03/22/24 04:55 98.1 F 67 16 120/55 03/22/24 02:00 66 16 03/21/24 23:00 98.1 F 66 16 137/82 03/21/24 20:00 16 03/21/24 19:28 98.5 F 87 16 129/85 03/21/24 16:52 98.3 F 73 18 160/89 03/21/24 16:02 70 18 167/99 03/21/24 16:00 98.2 F 70 18 133/86 03/21/24 15:02 66 18 Pulse Ox 03/22/24 12:00 100 03/22/24 08:00 99 03/22/24 04:55 99 03/22/24 02:00 03/21/24 23:00 100 03/21/24 20:00 03/21/24 19:28 99 03/21/24 16:52 100 03/21/24 16:02 100 03/21/24 16:00 100 03/21/24 15:02 99 Intake and Output 03/21/24 03/22/24 03/22/24 22:59 06:59 14:59 Intake Total 10 118 Balance 10 118 Intake: IV 10 0.9 10 Oral 118 Other: Voiding Method Toilet Toilet # Voids 1 2 2 Weight 74.843 kg 73.1 kg GENERAL: The patient is sitting in a recliner chair and is not in acute distress. Musculoskeletal: Has arthritic changes that is significant at different joints. NEUROLOGICAL: Higher mental function: The patient is awake, alert, oriented to self, place and time. Slow response. At times patient has a laughter upon me asking her question and appears somewhat confused. Patient is following commands. No aphasia and no neglect. Cranial nerves: The pupils are round, equal and reactive to light and accommodation. Visual alfonso are full to confrontation throughout. Extraocular movement is intact no nystagmus is noted. Facial sensation is normal to touch throughout. The facial strength is normal throughout. Hearing is normal bilaterally to hand rub. Tongue is midline and moved [id number] without any difficulty. No dysarthria is noted. Shoulder shrug is normal bilaterally. Motor: The strength is 5 over 5 throughout. Normal tone and bulk. Cerebellum: Normal finger to nosebilaterally. Sensation: Sensation is normal to touch throughout. Reflexes (right/left):2+ in uppers while lowers deferred because of severe arthritic changes and her wanting to avoid it because of concern for pain. Plantars are downgoing bilaterally. Results - Laboratory Findings CBC and BMP: 03/21/24 12:05 03/22/24 10:42 Abnormal Lab Findings: Abnormal Labs 03/21/24 03/21/24 03/21/24 12:00 12:05 12:05 RBC 3.76 L Sodium 126 L Chloride 91 L Carbon Dioxide BUN Creatinine Glucose 103 H POC Glucose (mg/dL) 119 H Total Protein 8.3 H 03/22/24 10:42 RBC Sodium 129 L Chloride 91 L Carbon Dioxide 31 H BUN 27 H Creatinine 1.58 H Glucose 110 H POC Glucose (mg/dL) Total Protein Assessment and Plan Assessment: This is a 63-year-old woman with history of gout, hypothyroidism who presented emergency department since she was eval by her primary care physician where she was found to be short of breath and confused. It seems patient was having difficulty speaking and weakness of extremity and was severely confused. Encephalopathy with speech difficulty and weakness of unknown etiology--mentatio n is improving. Rule out stroke also rule out questionable seizure History of hypothyroidism History of gout Plan: Ordered MRI of the brain with and without, routine EEG Patient is on aspirin 325 daily started by the ED team. 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
[2024-03-22 18:35] LABS: LDL Cholesterol,Calculated 105.7 mg/dL (0.0-131.0); VLDL Calculation 18.34 mg/dL (5.00-40.00)
--- NOTE | 2024-03-22 23:09 | EEG ---
ELECTROENCEPHALOGRAM REPORT CLINICAL HISTORY: This is a 63-year-old woman with altered mental status. The video EEG is obtained to evaluate for seizure epileptiform activity. RELEVANT MEDICATIONS: The patient is not on any antiseizure medication. EEG TYPE: A routine 21-channel EEG with video using the 10/20 electrode placement system. DESCRIPTION: Wakefulness is only obtained. During the awake state, the posterior-dominant rhythm consists of [id number] voltage of 8.5 hertz activity that is well modulated, well sustained. There is no physiological stage 2 sleep architecture. There is no focal slowing. Interictal and ictal is none. ACTIVATION PROCEDURE: Photic stimulation did not evoke a posterior driving response. There is no abnormality during the photic stimulation. Hyperventilation is not performed. CLINICAL INTERPRETATION: This is a normal routine EEG. There is no focal slowing, epileptiform discharge, or seizure on the EEG. A normal routine EEG does not rule out underlying epilepsy. Clinical correlation is recommended. MMRIVERA / IJN: [id number] /
[2024-03-23 08:27] LABS: Basophils % (A) 0 %; Eosinophils # (A) 0.1 k/uL (0-0.7); Eosinophils % (A) 4 %; HCT 36.3 % (34.0-46.0); HGB 11.6 gm/dL (11.4-16.0); Lymphocytes # (A) 0.6 k/uL (1.0-4.8); Lymphocytes % (A) 16 %; MCH 31.9 pg (25.0-35.0); MCV 99.7 fL (80.0-100.0); Mean Platelet Volume 7.1; Monocytes # (A) 0.3 k/uL (0-1.0); Monocytes % (A) 7 %; Neutrophils # (A) 2.8 k/uL (1.3-7.7); Neutrophils % (A) 71 %; Platelet Count 237 k/uL (150-450); RBC 3.64 m/uL (3.80-5.40); RDW 12.7 % (11.5-15.5); WBC 3.9 k/uL (3.8-10.6)
[2024-03-23 08:41] LABS: ALT 13 U/L (4-34); AST 26 U/L (14-36); African American GFR (CKD) 47 (>60 ml/min/1.73 sqM); Alkaline Phosphatase 104 U/L (38-126); Anion Gap 6 mmol/L; Blood Urea Nitrogen 24 mg/dL (7-17); Calcium 9.5 mg/dL (8.4-10.2); Carbon Dioxide 31 mmol/L (22-30); Chloride 91 mmol/L (98-107); Glucose 141 mg/dL (74-99); Non-African American GFR(CKD) 41 (>60 ml/min/1.73 sqM); Potassium 4.2 mmol/L (3.5-5.1); Sodium 128 mmol/L (137-145); Total Bilirubin 0.5 mg/dL (0.2-1.3); Total Protein 7.3 g/dL (6.3-8.2)
[2024-03-23] MEDS: FAMOTIDINE 20 MG TAB PO SCH (08:56)
[2024-03-23] MEDS: LORazepam 2 MG/ML INJ IV PRN (12:29)
--- NOTE | 2024-03-23 12:33 | CA ---
Transthoracic Echo Report Name: Araceli Ryan Age: 63 Gender: F : 1960 Exam Date: 03/23/2024 09:39 Exam Location: [facility] Ht (in): 66 Wt (lb): 161 Ordering Physician: Cali Barrow MD Attending/Referring Phys: Director Of Communications Germaine Chairez RDCS Procedure CPT: Indications: CVA Cardiac Hx: Technical Quality: Technically difficult study Contrast 1: Definity Total Dose (mL): 2 Contrast 2: Total Dose (mL): MEASUREMENTS (Male / Female) Normal Values 2D ECHO LV Diastolic Diameter PLAX 4.8 cm 4.2 - 5.9 / 3.9 - 5.3 cm LV Systolic Diameter PLAX 3.2 cm IVS Diastolic Thickness 0.9 cm 0.6 - 1.0 / 0.6 - 0.9 cm LVPW Diastolic Thickness 1.0 cm 0.6 - 1.0 / 0.6 - 0.9 cm LV Relative Wall Thickness 0.4 LVOT Diameter 2.0 cm Aortic Root Diameter 2.7 cm LV Diastolic Volume MOD BP 89.5 cm??? 67 - 155 / 56 - 104 cm??? LV Systolic Volume MOD BP 30.5 cm??? 22 - 58 / 19 - 49 cm??? LV Ejection Fraction MOD BP 65.9 % >= 55 % LV Cardiac Index MOD BP 1905.1 cm???/min???m??? LV Diastolic Volume MOD 4C 81.4 cm??? LV Systolic Volume MOD 4C 31.8 cm??? LV Ejection Fraction MOD 4C 60.9 % LV Cardiac Index MOD 4C 1602.0 cm???/min???m??? LV Diastolic Length 4C 8.2 cm LV Systolic Length 4C 6.2 cm LV Diastolic Volume MOD 2C 97.6 cm??? LV Systolic Volume MOD 2C 28.9 cm??? LV Ejection Fraction MOD 2C 70.4 % LV Cardiac Index MOD 2C 2220.4 cm???/min???m??? LV Diastolic Length 2C 8.1 cm LV Systolic Length 2C 6.1 cm Ascending Aorta Diameter 3.4 cm DOPPLER AV Peak Velocity 152.6 cm/s AV Peak Gradient 9.3 mmHg AV Mean Velocity 89.4 cm/s AV Mean Gradient 3.8 mmHg AV Velocity Time Integral 26.6 cm LVOT Peak Velocity 107.0 cm/s LVOT Peak Gradient 4.6 mmHg LVOT Velocity Time Integral 20.9 cm LVOT Stroke Volume 68.9 cm??? LVOT Stroke Volume Index 37.8 ml/m??? LVOT Cardiac Index 2225.5 cm???/min???m??? AV Area Cont Eq vti 2.6 cm??? AV Area Cont Eq pk 2.3 cm??? Mitral E Point Velocity 49.9 cm/s Mitral A Point Velocity 70.3 cm/s Mitral E to A Ratio 0.7 MV Deceleration Time 218.9 ms MV E' Velocity 7.6 cm/s Mitral E to MV E' Ratio 6.6 PV Peak Velocity 92.2 cm/s PV Peak Gradient 3.4 mmHg FINDINGS Left Ventricle Left ventricular ejection fraction is estimated at 55-60 %. Left ventricular cavity size normal. Left ventricular wall thickness normal. No obvious regional wall motion abnormalities. Right Ventricle Normal right ventricular size and function. Unable to estimate the right ventricular systolic pressure. Right Atrium Normal right atrial size. Left Atrium Normal left atrial size. Mitral Valve Structurally normal mitral valve. No mitral stenosis, regurgitation or prolapse. Aortic Valve Trileaflet aortic valve. No aortic valve stenosis or regurgitation. Tricuspid Valve Structurally normal tricuspid valve. No tricuspid stenosis. No tricuspid regurgitation. Pulmonic Valve Structurally normal pulmonic valve. No pulmonic stenosis. No pulmonic regurgitation. Pericardium No pericardial effusion. Aorta Normal size aortic root and proximal ascending aorta. CONCLUSIONS Left ventricular ejection fraction 55-60% No mitral regurgitation No tricuspid regurgitation No pericardial effusion Previewed by: Dr. Mohinder Rachel DO (Electronically Signed) Final Date: 23 March 2024 12:32
--- NOTE | 2024-03-23 12:35 | P.PN ---
Subjective Progress Note Date: 03/23/24 patient 63-year-old lady with past medical significant for hypothyroidism who presented the ER for altered mental status and strokelike symptoms. Patient was sent in from her PCPs office where she was found to be short of breath and confused. Patient also having difficulty in speaking and weakness of ex tremities. Patient was immediately sent to the ER. There was no noticeable jerking movement of any extremity. No loss of consciousness. There was no complaint of chest pain. Patient was a poor historian. Stroke code was called in the ER. Initial lab work done in the ER showed WBC 4, hemoglobin 12.5, platelet count 260, sodium 126, potassium 4.8, BUN 15, creatinine 0.86, glucose 103, calcium 9.9, troponin 0.012 EKG done in the ER showed heart rate of 64, no ST segment elevation or depressio n seen, no T-wave inversions seen. Chest x-ray done in the ER showed no acute process CT head done showed no acute intracranial process CTA head and neck done showed mild right and moderate left carotid bifurcation atherosclerotic disease. ER physician discussed with on-call neurologist, patient was not a tPA candidate as patient symptoms were improving. Patient admitted to internal medicine service 03/23. Patient seen and examined. EEG done showed no seizure-like activity. States she feels better. REVIEW OF SYSTEMS: CONSTITUTIONAL: No fever, no malaise,. CARDIOVASCULAR: No chest pain, no palpitations, no syncope. PULMONARY: No shortness of breath, no cough, GASTROINTESTINAL: No diarrhea, no nausea, no vomiting, no abdominal pain. NEUROLOGICAL: No headaches, no weakness, PHYSICAL EXAMINATION: GENERAL: The patient is alert and oriented x3, not in any acute distress. Well developed, well nourished. HEENT: Pupils are round and equally reacting to light. EOMI. No scleral icterus. No conjunctival pallor. Normocephalic, atraumatic. No pharyngeal erythema. No thyromegaly. CARDIOVASCULAR: S1 and S2 present. No murmurs, rubs, or gallops. PULMONARY: Chest is clear to auscultation, no wheezing or crackles. ABDOMEN: Soft, nontender, nondistended, normoactive bowel sounds. No palpable organomegaly. MUSCULOSKELETAL: No joint swelling or deformity. EXTREMITIES: No cyanosis, clubbing, or pedal edema. NEUROLOGICAL: Gross neurological examination did not reveal any focal deficits. SKIN: No rashes. Assessment and plan Strokelike symptoms Hyponatremia Hypothyroidism Hypertension Monitor vital signs Monitor CBC Monitor CMP Continue telemetry monitoring Continue Synthroid Continue propranolol MRI brain pending EEG negative for any seizure-like activity Neurology following Labs and medication were reviewed.. Continue same treatment. Continue with symptomatic treatment. Resume home medication. Monitor labs and vitals. DVT and GI prophylaxis. Further recommendations as per clinical course of the patient Dictation was produced using [employer] dictation software. please excuse any grammatical, word or spelling errors. Objective - Vital Signs Vital signs: Vital Signs Temp 98.1 F 03/22/24 20:00 Pulse 58 L 03/23/24 04:00 Resp 18 03/23/24 04:00 BP 113/75 03/23/24 04:00 Pulse Ox 100 03/23/24 04:00 FiO2 Intake & Output 03/22/24 03/23/24 03/23/24 18:59 06:59 18:59 Intake Total 118 280 Balance 118 280 Weight 73.3 kg Intake: Oral 118 280 Other: Voiding Method Toilet # Voids 2 3 - Labs CBC & Chem 7: 03/23/24 08:05 03/23/24 08:05 Labs: Abnormal Lab Results - Last 24 Hours (Table) 03/21/24 03/22/24 03/23/24 Range/Units 12:06 10:42 08:05 RBC 3.64 L (3.80-5.40) m/uL Lymphocytes # 0.6 L (1.0-4.8) k/uL Sodium 129 L (137-145) mmol/L Chloride 91 L (98-107) mmol/L Carbon Dioxide 31 H (22-30) mmol/L BUN 27 H (7-17) mg/dL Creatinine 1.58 H (0.52-1.04) mg/dL Glucose 110 H (74-99) mg/dL HDL Cholesterol 73.00 H (40.00-60.00) mg/dL 03/23/24 Range/Units 08:05 RBC (3.80-5.40) m/uL Lymphocytes # (1.0-4.8) k/uL Sodium 128 L (137-145) mmol/L Chloride 91 L (98-107) mmol/L Carbon Dioxide 31 H (22-30) mmol/L BUN 24 H (7-17) mg/dL Creatinine 1.37 H (0.52-1.04) mg/dL Glucose 141 H (74-99) mg/dL HDL Cholesterol (40.00-60.00) mg/dL
[2024-03-23 12:48] VITALS: RESP 16
--- NOTE | 2024-03-23 13:25 | MR ---
EXAMINATION TYPE: MR brain wo/w con DATE OF EXAM: 03/23/2024 1:19 PM CLINICAL INDICATION: Female, 63 years old with history of altered mental status unknown COMPARISON: None TECHNIQUE: Multi planar, multi sequence imaging was performed through the brain including: T1, T2, In version recovery, susceptibility weighted imaging and gradient echo imaging and Diffusion weighted im aging. The patient was then given intravenous contrast and multi planar, T1 fat-saturation images wer e obtained. IV Contrast: cc 7 cc Gadavist FINDINGS: The osborn-white junctions, ventricular system, basal cisterns appear unremarkable. Diffusion-weighted imaging shows no evidence of restricted diffusion to suggest acute/subacute infarct. Intracranial ar terial flow voids are maintained. Midline structures show no abnormality. . The susceptibility weight ed images do not reveal any evidence for micro-hemorrhage. After administration of gadolinium, no abn ormal enhancement is seen. The bone marrow signal is within normal limits. Paranasal sinuses and mastoid air cells: No significant paranasal sinus disease. Visualized orbits: Orbital contents are intact. IMPRESSION: 1. No evidence of intracranial mass, acute/subacute infarct, or abnormal enhancement.
[2024-03-24 09:02] VITALS: BP 133/82; TEMP 98.3
[2024-03-24 10:50] VITALS: PULSE 57
--- NOTE | 2024-03-24 11:28 | P.DS ---
Providers Date of admission: 03/21/24 14:01 Expected date of discharge: 03/24/24 Attending physician: Jose Dos Santos Consults: 03/21/24 14:02 Consult Physician Routine Consulting Provider: Carlos Armstrong Consult Reason/Comments: code stroke Do you want consulting provider notified?: Yes Primary care physician: Teddy [facility] Course: Discharge diagnoses; Strokelike symptoms resolved Hyponatremia Hypothyroidism Hypertension Hospital course; patient 63-year-old lady with past medical significant for hypothyroidism who presented the ER for altered mental status and strokelike symptoms. Patient was sent in from her PCPs office where she was found to be short of breath and confused. Patient also having difficulty in speaking and weakness of extremities. Patient was immediately sent to the ER. There was no noticeable jerking movement of any extremity. No loss of consciousness. There was no complaint of chest pain. Patient was a poor historian. Stroke code was called in the ER. Initial lab work done in the ER showed WBC 4, hemoglobin 12.5, platelet count 260, sodium 126, potassium 4.8, BUN 15, creatinine 0.86, glucose 103, calcium 9.9, troponin 0.012 EKG done in the ER showed heart rate of 64, no ST segment elevation or depression seen, no T-wave inversions seen. Chest x-ray done in the ER showed no acute process CT head done showed no acute intracranial process CTA head and neck done showed mild right and moderate left carotid bifurcation atherosclerotic disease. ER physician discussed with on-call neurologist, patient was not a tPA candidate as patient symptoms were improving. Patient admitted to internal medicine service 03/23. Patient seen and examined. EEG done showed no seizure-like activity. States she feels better. 03/24. Patient seen and examined. MRI brain negative for any acute stroke. 2D echo done showed normal LVEF 55 to 60%, no mitral regurg, no tricuspid regurg or pericardial effusion. Patient was cleared for discharge by neurology PHYSICAL EXAMINATION: GENERAL: The patient is alert and oriented x3, not in any acute distress. Well developed, well nourished. HEENT: Pupils are round and equally reacting to light. EOMI. No scleral icterus. No conjunctival pallor. Normocephalic, atraumatic. No pharyngeal erythema. No thyromegaly. CARDIOVASCULAR: S1 and S2 present. No murmurs, rubs, or gallops. PULMONARY: Chest is clear to auscultation, no wheezing or crackles. ABDOMEN: Soft, nontender, nondistended, normoactive bowel sounds. No palpable organomegaly. MUSCULOSKELETAL: No joint swelling or deformity. EXTREMITIES: No cyanosis, clubbing, or pedal edema. NEUROLOGICAL: Gross neurological examination did not reveal any focal deficits. SKIN: No rashes. Dictation was produced using [employer] dictation software. please excuse any grammatical, word or spelling errors. Patient Condition at Discharge: Fair Plan - Discharge Summary New Discharge Prescriptions: Continue Levothyroxine Sodium [Synthroid] 25 mcg PO DAILY Propranolol HCl [Propranolol HCl ER] 80 mg PO DAILY #0 hydrOXYzine HCL [Atarax] 50 mg PO HS PRN PRN Reason: ANXIETY/SLEEP Ondansetron Odt [Zofran ODT] 4 mg PO Q8HR PRN #30 tab PRN Reason: Nausea Sertraline [Zoloft] 50 mg PO HS Albuterol Inhaler [Ventolin Hfa Inhaler] 1 - 2 puff INHALATION RT-Q6H PRN PRN Reason: Shortness Of Breath Famotidine [Pepcid] 20 mg PO BID #60 tablet Ergocalciferol (Vitamin D2) [Drisdol (50,000 Iu)] 1,250 mcg PO Q7D Discharge Medication List Levothyroxine Sodium [Synthroid] 25 mcg PO DAILY 09/12/22 [History] Propranolol HCl [Propranolol HCl ER] 80 mg PO DAILY #0 09/14/22 [Rx] Albuterol Inhaler [Ventolin Hfa Inhaler] 1 - 2 puff INHALATION RT-Q6H PRN 07/12/23 [History] hydrOXYzine HCL [Atarax] 50 mg PO HS PRN 07/13/23 [History] Famotidine [Pepcid] 20 mg PO BID #60 tablet 11/16/23 [Rx] Ondansetron Odt [Zofran ODT] 4 mg PO Q8HR PRN #30 tab 11/16/23 [Rx] Ergocalciferol (Vitamin D2) [Drisdol (50,000 Iu)] 1,250 mcg PO Q7D 03/21/24 [History] Sertraline [Zoloft] 50 mg PO HS 03/21/24 [History] Follow up Appointment(s)/Referral(s): Teddy Gore DO [Primary Care Provider] - 1-2 days Discharge Disposition: HOME SELF-CARE
== END 2024-03-24 13:32 | disposition home or self-care (01) | DRG 71 ==
LOC: EC 11:46 → 3SCARD 14:01
PROVIDERS: ADMIT Hospitalist; ATTEND Hospitalist
DX: G93.40 Encephalopathy, unspecified (principal); E87.1 Hypo-osmolality and hyponatremia; E03.9 Hypothyroidism, unspecified; I10 Essential (primary) hypertension; J45.909 Unspecified asthma, uncomplicated; F17.210 Nicotine dependence, cigarettes, uncomplicated; R47.1 Dysarthria and anarthria; K21.9 Gastro-esophageal reflux disease without esophagitis; M10.9 Gout, unspecified; Z79.890 Hormone replacement therapy; Z79.899 Other long term (current) drug therapy
CPT/HCPCS: 96374; 99291

== ENCOUNTER → 2024-04-22 | Day surgery (SDC) | payer MEDICARE, OTHER ==
[~2024-04-22] MED LIST changes: -LABETALOL SYRINGE 5 MG/ML (4 ML SYR) ONE; +LACTATED RINGERS 1,000 ML IV SCH; +LIDOCAINE 1% (10MG/ML) FOR IV START INTRADERMA PRN; +LIDOCAINE 1% INJ 10MG/ML (20 ML MDV) ONE; -LORazepam 2 MG/ML INJ ONE; -MORPHINE SULFATE 4 MG/ML SYRINGE ONE; +PROPOFOL 10 MG/ML 20 ML VIAL IV ONE; -SODIUM CHLORIDE 0.9% 1,000 ML BAG ONE
[2024-04-22] MEDS: IV FLUID CONTINUATION 1,000 ML IV ONE (11:55)
[2024-04-22 12:14] VITALS: TEMP 97
--- NOTE | 2024-04-22 12:55 | P.PCN ---
Date of Procedure: 04/22/24 Procedure(s) Performed: BRIEF HISTORY: Patient is a 63-year-old, pleasant, -[place] female scheduled for an upper endoscopy as a part of evaluation of chronic intermittent nausea vomiting for the last 2 years duration. She been on Prilosec 20 mg daily and recently has been feeling much better.. PROCEDURE PERFORMED: Esophagogastroduodenoscopy biopsy. PREOPERATIVE DIAGNOSIS: Chronic intermittent nausea vomiting of 2 years duration. IV sedation per anesthesia. PROCEDURE: After informed consent was obtained, the patient was brought into the endoscopy unit. IV sedation was administered by Anesthesia under continuous monitoring. Initially the Olympus GIF-140 video endoscope was inserted into the mouth. Esophagus intubated without any difficulty. It was gradually advanced into the stomach and duodenum and carefully examined. The bulb and the second part of the duodenum appeared normal. Biopsies were done from the duodenum to evaluate for celiac disease the scope at this time was withdrawn to the stomach, adequately insufflated with air, and upon careful examination, mucosa of the antrum, had scattered erosions consistent with gastritis and biopsies were done from this area. Mucosa of the body, cardia and the fundus appeared normal. The scope was then withdrawn into the esophagus. Small hiatal hernia noted. The GE junction was located at 35 cm from the incisors. The esophagus appeared normal. There were no erosions or ulcerations seen biopsies were done from the distal s oft and the patient tolerated the procedure well. IMPRESSION: 1. Mild antral erosive gastritis. 2. Small hiatal hernia. RECOMMENDATIONS: The findings of this examination were discussed with the patient as well as her family. She was advised to follow with the biopsy results. Advised to increase omeprazole to 20 mg twice daily and follow antireflux measures. If she is still remains symptomatic advised to follow-up in the office.
[2024-04-22 13:19] VITALS: BP 164/99; PULSE 66; RESP 14
== END ==
LOC: ORWHC2ENDO 11:13
PROVIDERS: ATTEND Internal Medicine Gastroenterology
DX: R11.2 Nausea with vomiting, unspecified
CPT/HCPCS: 43239; 88305